=== PATIENT | female | born 1930 | race Caucasian/White ===

== ENCOUNTER → 2017-01-13 | Outpatient (CLI) | END | disposition home or self-care (01) | DX: M25.561 Pain in right knee (principal); M17.11 Unilateral primary osteoarthritis, right knee; Z96.652 Presence of left artificial knee joint | CPT/HCPCS: 73562; 73564; G0463 ==

== ENCOUNTER 2018-12-11 21:11 | Inpatient (IN) | payer MEDICARE, OTHER ==
[~2018-12-11] VITALS: Ht 152.4 cm; Wt 47.0 kg
[~2018-12-11 21:11] MED LIST: ALPR0.254 PO; BACL10TA PO; LOSA1TAB3 PO; LYR75 PO; PANT40TA4 PO; TRAM50TA2 PO
--- NOTE | 2018-12-12 01:04 | ERD ---
ER Documentation Chief Complaint Chief Complaint left chest discomfort/sob 1d HPI The patient is a 80-year-old female, presenting to the ER because of left chest discomfort with dyspnea for 1 day. She had similar symptom previously and had left pleural effusion drainage chest tube for the last 2 months, and by her surgeon 2 weeks ago. The chest tube is capped but drained by the home health nurse twice weekly, it was drained yesterday. He denies fever, cough, neck pain, abdominal pain, vomiting, dysuria, diarrhea. She does not smoke nor drink Past medical history: Hypertension, anxiety, fibromyalgia, dyslipidemia, left pl eural effusion Past surgical history: Cholecystectomy, right shoulder arthroscopy, left knee arthroscopy ROS All systems reviewed and are negative except as per history of present illness. Medications Home Meds Reported Medications Omeprazole* (Omeprazole*) 40 Mg Capsule.dr, 40 MG PO DAILY 12/12/18 Enalapril Maleate* (Enalapril Maleate*) 10 Mg Tablet, 10 MG PO DAILY for 90 Days, #90 12/12/18 Duloxetine Hcl* (Duloxetine Hcl*) 60 Mg Capsule.dr, 60 MG PO DAILY for 30 Days, #30 12/12/18 Amlodipine Besylate* (Amlodipine Besylate*) 2.5 Mg Tablet, 2.5 MG PO DAILY for 30 Days, #30 12/12/18 Discontinued Reported Medications Pregabalin* (Lyrica*) 75 Mg Capsule, 75 MG PO DAILY 08/11/12 Alprazolam* (Alprazolam*) 0.25 Mg Tablet, 0.25 MG PO NEEDED 08/11/12 Tramadol HCl (Tramadol HCl) 50 Mg Tablet, 50 MG PO DAILY 08/11/12 Pantoprazole* (Pantoprazole*) 40 Mg Tablet.dr, 40 MG PO DAILY 08/11/12 Losartan-Hydrochlorothiazide (Hyzaar) 1 Tab Tablet, 1 TAB PO DAILY 08/11/12 Baclofen* (Baclofen*) 10 Mg Tablet, 15 MG PO TID 08/11/12 Allergies Allergies: Coded Allergies: aspirin (Verified Allergy, Unknown, 08/11/12) PMhx/Soc History of Surgery: Yes (cholecystectomy, R shoulder sx, L knee sx) Anesthesia Reaction: No Hx Neurological Disorder: No Hx Respiratory Disorders: No Hx Cardiac Disorders: No Hx Psychiatric Problems: No Hx Miscellaneous Medical Probl: Yes (anxiety, osteoporosis, high cholesterol, fibromyalgia) Hx Alcohol Use: No Hx Substance Use: No Hx Tobacco Use: No Physical Exam Vitals Vital Signs Date Temp Pulse Resp B/P (MAP) Pulse Ox O2 O2 Flow FiO2 Time Delivery Rate 12/12/18 94 23 159/53 96 Room Air 01:51 (88) 12/11/18 97.6 97 18 153/80 96 21:18 (104) Physical Exam Const: No acute distress. Head: Atraumatic. Eyes: Normal Conjunctiva. ENT: Normal External Ears, Nose and Mouth. Neck: Full range of motion. No meningismus. Resp: Decreased bilateral lower breath sounds, no wheezes Cardio: Regular rate and rhythm. Abd: Soft, non distended, normal bowel sounds, non tender. Skin: No petechiae or rashes. Back: No midline or flank tenderness. Ext: No cyanosis, or edema. Neur: Awake and alert. No focal deficit Psych: Normal Mood and Affect. Result Diagram: 12/12/18 0142 12/12/18 0142 Results 24 hrs Laboratory Tests Test 12/12/18 01:42 12/12/18 01:52 White Blood Count 7.9 10^3/ul Red Blood Count 4.94 10^6/ul Hemoglobin 14.8 g/dl Hematocrit 43.4 % Mean Corpuscular Volume 87.9 fl Mean Corpuscular Hemoglobin 30.0 pg Mean Corpuscular Hemoglobin Concent 34.1 g/dl Red Cell Distribution Width 13.6 % Platelet Count 329 10^3/UL Mean Platelet Volume 10.8 fl Immature Granulocytes % 0.300 % Neutrophils % 77.2 % Lymphocytes % 15.4 % Monocytes % 6.2 % Eosinophils % 0.4 % Basophils % 0.5 % Nucleated Red Blood Cells % 0.0 /100WBC Immature Granulocytes # 0.020 10^3/ul Neutrophils # 6.1 10^3/ul Lymphocytes # 1.2 10^3/ul Monocytes # 0.5 10^3/ul Eosinophils # 0.0 10^3/ul Basophils # 0.0 10^3/ul Nucleated Red Blood Cells # 0.0 10^3/ul Prothrombin Time 12.7 Sec Prothrombin Time Ratio 1.0 INR International Normalized Ratio 0.94 Activated Partial Thromboplast Time 30.5 Sec D-Dimer 1955.67 ng/ml D-Dimer Comment Sodium Level 134 mmol/L Potassium Level 3.9 mmol/L Chloride Level 98 mmol/L Carbon Dioxide Level 27 mmol/L Anion Gap 9 Blood Urea Nitrogen 15 mg/dl Creatinine 0.51 mg/dl Est Glomerular Filtrat Rate mL/min mL/min Glucose Level 116 mg/dl Calcium Level 9.8 mg/dl Total Bilirubin 0.8 mg/dl Direct Bilirubin 0.00 mg/dl Indirect Bilirubin 0.8 mg/dl Aspartate Amino Transf (AST/SGOT) 32 IU/L Alanine Aminotransferase (ALT/SGPT) 25 IU/L Alkaline Phosphatase 160 IU/L Troponin I < 0.012 ng/ml B-Type Natriuretic Peptide 769 PG/ML Total Protein 7.8 g/dl Albumin 4.0 g/dl Globulin 3.80 g/dl Albumin/Globulin Ratio 1.05 Bedside Urine pH (LAB) 5.5 Bedside Urine Protein (LAB) 1+ Bedside Urine Glucose (UA) Negative Bedside Urine Ketones (LAB) 3+ Bedside Urine Blood Negative Bedside Urine Nitrite (LAB) Negative Bedside Urine Leukocyte Esterase (L Negative Current Medications Medications Dose Sig/Minoo Start Time Status Last (Trade) Ordered Route PRN Stop Time Admin Dose Reason Admin IV Flush 10 ml STK-MED 12/12/18 DC 12/12/18 (NS 10 ml) ONCE .ROUTE 03:36 03:47 12/12/18 03:37 Sodium 100 ml @ STK-MED 12/12/18 DC 12/12/18 Chloride ONCE .ROUTE 03:36 03:47 12/12/18 03:37 Iohexol 100 ml @ STK-MED 12/12/18 DC 12/12/18 ONCE .ROUTE 03:36 03:47 12/12/18 03:37 Procedures/[place] [id number] Radiology Main Line: [phone] DIAGNOSTIC IMAGING REPORT Patient: DARCIE LINK : 1930 Age: 88 Sex: F MR #: [id number] DOS: 12/12/18 0125 Ordering MD: MILIND MCQUEEN MD Location: E/R Room/Bed: PROCEDURE: XR Chest. CLINICAL INDICATION: Shortness of breath. TECHNIQUE: Single frontal chest x-ray. COMPARISON: 11/17/2018 FINDINGS: Patient is slightly rotated to the left. There is a left basilar chest tube. Heart is enlarged. There is unchanged pulmonary vascular congestion.. There is unchanged left greater than right pleural effusions with associated atelectasis. There is no pneumothorax. The osseous structures are unremarkable. IMPRESSION: No significant change. Cardiomegaly. Pulmonary vascular congestion. Left greater right pleural effusions with associated atelectasis. Unchanged left basilar chest tube. RPTAT: HMVK .Milind Kumar MD, MD Date Time Electronically viewed and signed by .Milind Kumar MD, MD on 12/12/2018 03:00 .K/ CC: MILIND MCQUEEN MD [id number] EKG: Read by emergency physician Rate/Rhythm: Normal Sinus Rhythm 93 beats/min QRS, ST, T-waves: No ST elevation, no T inversion, LAE, RWA Impression: Abnormal EKG [place] [id number] Radiology Main Line: [phone] DIAGNOSTIC IMAGING REPORT Patient: DARCIE LINK : 1930 Age: 88 Sex: F MR #: [id number] DOS: 12/12/18 0320 Ordering MD: MILIND MCQUEEN MD Location: E/R Room/Bed: PROCEDURE: CTA Chest. CLINICAL INDICATION: Shortness of breath TECHNIQUE: The study was performed utilizing a multidetector CT scanner. Direct spiral 1 axial sections were obtained from the thoracic inlet to the upper abdomen with the use of 100 cc of [id number]-300 nonionic intravenous contr ast material and reformatted at 3. Coronal, sagittal and 3-D angiographic reformations were obtained. The images were reviewed on a PACS workstation. CT D I 28 mCi Dose 163 mGy/cm Individualized dose optimization technique was used for the performance of this exam. This included 1. Automated exposure control. 2. Adjustment of the mA and / or kV according to the patient's size. 3. Use of iterative reconstruction technique. DICOM images are included COMPARISON: No prior studies are available for comparison. FINDINGS: There is no central or peripheral pulmonary embolism. Main pulmonary artery is not enlarged. Thoracic aorta is normal with no dissection or aneurysm. There is a left-sided chest tube. A loculated subpulmonic effusion is seen at the left lung base. There is a xzcjdxqy-vn-lrwxd right pleural effusion with compressive atelectasis at the right lung base. There are innumerable sub-centimeter noncalcified nodules throughout each of the lung segments. Dense consolidation or masses present in the left lower lobe. There is volume loss in the left chest with mediastinal shift to the left. Noted is a small to moderate-sized pericardial effusion. No pneumothorax is visualized. No hilar or mediastinal adenopathy is seen. No upper abdominal or adrenal mass is present. The osseous structures appear normal. IMPRESSION: No pulmonary embolism. No thoracic aortic aneurysm or dissection. Uaxogdfo-da-oecag right pleural effusion with compressive atelectasis right lung base. Small loculated subpulmonic left pleural effusion. Left-sided chest tube. Dense consolidation versus mass left lower lobe. Innumerable sub centimeter noncalcified bilateral lung nodules. Question metastatic disease versus inflammatory or infectious nodules. Clinical correlation suggested. Pericardial effusion. .Brayan Ortiz MD, Date Time Electronically viewed and signed by .Brayan Ortiz MD, MD on 12/12/2018 05:53 .A/ CC: MILIND MCQUEEN MD [phone] MEDICAL MAKING DECISION: The patient is a 88-year-old female, presenting with acute pericardial effusion, bilateral lower effusion The differential diagnoses considered include but are not limited to malignancy, empyema, pneumonia Departure Diagnosis: Primary Impression: Pericardial effusion Additional Impression: Bilateral pleural effusion Condition: Stable Comments I discussed the findings with the patient. I notified the patient with Dr. Burch at 5:50 AM via [employer] , who was made aware of the lab, the treatment, the patient condition. The patient is admitted to [facility] Disclaimer: Inadvertent spelling and grammatical errors are likely due to EHR/dictation software use and do not reflect on the overall quality of patient care. Also, please note that the electronic time recorded on this note does not necessarily reflect the actual time of the patient encounter. MILIND MCQUEEN MD Dec 12, 2018 01:04
[2018-12-12] MEDS ORDERED: IOHEXOL 100 ML ONE (03:36)
[2018-12-12] MEDS ORDERED: SOD CHLORIDE 0.9% 100 ML ONE (03:36)
[2018-12-12] MEDS ORDERED: ENAL10TA PO (04:06)
[2018-12-12] MEDS ORDERED: OMEP40CA6 PO (04:06)
[2018-12-12] MEDS ORDERED: DULO60CA59 PO (04:06)
[2018-12-12] MEDS ORDERED: AMLO2.5T78 PO (04:06)
[2018-12-12] MEDS ORDERED: ACETAMINOPHEN 325 MG TAB PO PRN (06:30)
[2018-12-12] MEDS ORDERED: FUROSEMIDE 40 MG INJ IV ONE (06:30)
[2018-12-12] MEDS ORDERED: BISACODYL (EC) 5 MG TAB PO PRN (06:30)
[2018-12-12] MEDS ORDERED: ONDANSETRON 4 MG INJ IV PRN ×2 (06:30→11:30)
[2018-12-12] MEDS ORDERED: DOCUSATE SODIUM 100 MG CAP PO PRN (06:30)
[2018-12-12] MEDS: NACL 0.9% 3 ML SYG IV SCH ×2 (06:46→06:47)
[2018-12-12 10:00] VITALS: Ht 152.4 cm; Wt 47.0 kg
[2018-12-12] MEDS: DULOXETINE 30 MG CAP DR PO SCH (11:00)
[2018-12-12] MEDS: ENALAPRIL 10 MG TAB PO SCH (11:00)
[2018-12-12] MEDS: AMLODIPINE 2.5 MG TAB PO SCH (11:00)
--- NOTE | 2018-12-12 11:01 | HP ---
Date/Time of Note Date/Time of Note DATE: 12/12/18 TIME: 11:01 Assessment/Plan VTE Prophylaxis Pharmacological prophylaxis: NA/contraindicated Pharm contraindication: other (Patient to get thoracentesis) Lines/Catheters [facility] Assessment/Plan Hospital Course 88-year-old female with comorbidities including hypertension, chronic left-sided pleural effusion status post Pleurx cath placement, and fibromyalgia who presented to the emergency room with epigastric discomfort who was incidentally found to have a moderate to large right pleural effusion, and pericardial effusion, who will be admitted to inpatient setting for further treatment and evaluation. 1. Bilateral pleural effusions. Etiology unclear. 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 Has a left sided Pleurx catheter in place. Obtain a right-sided thoracentesis. Drainage of the left Pleurx catheter will be deferred to pulmonology. Send fluid studies including cytology. Obtain pulmonology consult. Supplemental oxygen as needed. 2. Epigastric abdominal discomfort. Probably secondary to underlying gastric reflux. Trial of histamine 2 receptor blockers. 3. Pericardial effusion. Probably trivial pericardial effusion. No evidence of any tamponade. 2D echocardiogram ordered. Obtain cardiology consult if the 2D echocardiogram shows significant pleural effusion. 4. Hypertension. Resume antihypertensives. 5. Fibromyalgia. Resume duloxetine. Plan: The patient will be admitted to inpatient telemetry floor. The patient will be started on a regular diet. The patient will be started on DVT prophylaxis and gastrointestinal prophylaxis. The patient will remain a full code. Activities will be as tolerated. The rest of the patient's management will be based on the clinical course, inputs from consultants, and the results of diagnostic studies. Based on the patient's clinical presentation, she most probably requires at least 2 midnights' stay for further management and evaluation of her clinical presentation. The patient was seen in collaboration with Dr. Garsia. Result Diagram: 12/12/18 0142 12/12/18 0142 Results 24hrs Laboratory Tests Test 12/12/18 01:42 12/12/18 01:52 12/12/18 09:56 White Blood Count 7.9 Red Blood Count 4.94 Hemoglobin 14.8 Hematocrit 43.4 Mean Corpuscular Volume 87.9 Mean Corpuscular Hemoglobin 30.0 Mean Corpuscular Hemoglobin Concent 34.1 Red Cell Distribution Width 13.6 Platelet Count 329 Mean Platelet Volume 10.8 H Immature Granulocytes % 0.300 Neutrophils % 77.2 H Lymphocytes % 15.4 Monocytes % 6.2 Eosinophils % 0.4 Basophils % 0.5 Nucleated Red Blood Cells % 0.0 Immature Granulocytes # 0.020 Neutrophils # 6.1 Lymphocytes # 1.2 Monocytes # 0.5 Eosinophils # 0.0 Basophils # 0.0 Nucleated Red Blood Cells # 0.0 Prothrombin Time 12.7 Prothrombin Time Ratio 1.0 INR International Normalized Ratio 0.94 Activated Partial Thromboplast Time 30.5 D-Dimer 1955.67 H D-Dimer Comment Sodium Level 134 L Potassium Level 3.9 Chloride Level 98 Carbon Dioxide Level 27 Anion Gap 9 Blood Urea Nitrogen 15 Creatinine 0.51 Est Glomerular Filtrat Rate mL/min Glucose Level 116 Calcium Level 9.8 Total Bilirubin 0.8 Direct Bilirubin 0.00 Indirect Bilirubin 0.8 Aspartate Amino Transf (AST/SGOT) 32 Alanine Aminotransferase (ALT/SGPT) 25 Alkaline Phosphatase 160 H Troponin I < 0.012 < 0.012 B-Type Natriuretic Peptide 769 H Total Protein 7.8 Albumin 4.0 Globulin 3.80 H Albumin/Globulin Ratio 1.05 Bedside Urine pH (LAB) 5.5 Bedside Urine Protein (LAB) 1+ H Bedside Urine Glucose (UA) Negative Bedside Urine Ketones (LAB) 3+ H Bedside Urine Blood Negative Bedside Urine Nitrite (LAB) Negative Bedside Urine Leukocyte Esterase (L Negative Creatine Kinase 66 Creatine Kinase Index 2.5 Creatinine Kinase MB (Mass) 1.65 HPI/ROS Admit Date/Time Admit Date/Time Dec 12, 2018 at 06:08 Hx of Present Illness Reason for admission: Epigastric discomfort. Bilateral pleural effusion on chest CT. Consultants 1. Patience Mathur MD, Pulmonology. This is an 88-year-old female with past medical history of hypertension, fibromyalgia, and chronic left pleural effusion status post Pleurx catheter in July 2018. As per the patient's family, she had this left-sided pleural effusion since April 2018. She had a Pleurx catheter placed by in July 2018. The patient follows up with outpatient pulmonology (Dr. Beltran). Patient gets her Pleurx catheter drained once a week. Her last drainage was on 12/10/2018, that was minimal as per the family. The family was unable to give a clear explanation for the cause of her underlying chronic left-sided pleural effusion. The family is unaware if the patient has any underlying malignancy that is causing this pleural effusion. The patient verbalized that she came to the emergency room primarily because of epigastric discomfort and that has been going on for the past 2 weeks. She was having poor appetite and was having naus ea. She denied any vomiting. She verbalized a single episode of diarrhea. She denied any fevers or chills. She denied any chest pain or dyspnea. She denied any sore throat. In the emergency room, the patient underwent a chest x-ray that showed cardiomegaly, pulmonary vascular congestion, and left greater than right pleural effusions with associated atelectasis. As a result, the patient underwent a CT angiogram of the chest that was showing no pulmonary embolism. However, it showed moderate to large right-sided pleural effusion with compressive atelectasis of the right lung base with a small loculated subpulmonic left pleural effusion with a left-sided chest tube in place. The CT also revealed a pericardial effusion. She was treated with a single dose of IV Lasix in the emergency room. ROS Constitutional: nausea, poor po Eyes: no complaints ENT: no complaints Respiratory: shortness of breath Cardiovascular: no complaints Gastrointestinal: pain, diarrhea, nausea Genitourinary: no complaints Musculoskeletal: no complaints Skin: no complaints Neurologic: no complaints Endocrine: no complaints Lymphatic: no complaints Psychological: no complaints Immunologic: no complaints PMH/Family/Social Past Medical History 1. Hypertension. 2. Chronic left pleural effusion. 3. Fibromyalgia. Medications Current Medications IV Flush (NS 3 ml) 3 ml PER PROTOCOL IV Last administered on 12/12/18at 06:47; Admin Dose 3 ML; Start 12/12/18 at 06:30 Ondansetron HCl (Zofran Inj) 4 mg Q6H PRN IV NAUSEA/VOMITING; Start 12/12/18 at 06:30 Acetaminophen (Tylenol Tab) 650 mg Q6H PRN PO .PAIN 1-3 OR TEMP; Start 12/12/18 at 06:30 Docusate Sodium (Colace) 100 mg Q12H PRN PO .CONSTIPATION; Start 12/12/18 at 06:30 Bisacodyl (Dulcolax) 5 mg DAILY PRN PO .CONSTIPATION; Start 12/12/18 at 06:30 Coded Allergies: aspirin (Verified Allergy, Unknown, 08/11/12) Past Surgical History 1. Bilateral knee surgery. 2. Bilateral hip surgery. 3. Right shoulder surgery. 4. Cholecystectomy. 5. Left Pleurx cath placement. Social History Lives at home with family. Alcohol Use: none Smoking Status: Never smoker Drug Use: none Exam/Review of Systems Vital Signs Vitals Vital Signs Date Temp Pulse Resp B/P (MAP) Pulse Ox O2 O2 Flow FiO2 Time Delivery Rate 12/12/18 92 16 131/68 98 Nasal 2.0 09:20 (89) Cannula 12/12/18 98.4 08:27 Exam Exam General: Adequately build 88 year-old female lying in bed in no apparent distress. HEENT: Normocephalic, atraumatic. Eyes: Anicteric sclerae, conjunctivae clear. ENT: Nasal septum midline, oral mucosa is dry. Neck supple. Respiratory: Bilaterally diminished breath sounds. No use of accessory muscles of respiration. Rales at the right base. Left chest wall Pleur-X catheter in place. Cardiovascular: S1, S2 heard. No murmurs or gallops. Abdomen: Soft, nontender, and nondistended. Surgical scar from previous cholecystectomy. Bowel sounds positive in all 4 quadrants. Genitourinary: Deferred. Extremities: No cyanosis, no clubbing, no edema. Peripheral pulses palpable. Surgical scar on bilateral knees. Neurologic: Cranial nerves II through XII grossly intact. The patient is awake, alert, and oriented. Skin: Normal skin turgor. No skin rashes. Additional Comments CTA Chest IMPRESSION: No pulmonary embolism. No thoracic aortic aneurysm or dissection. Roouedbu-zl-olezh right pleural effusion with compressive atelectasis right lung base. Small loculated subpulmonic left pleural effusion. Left-sided chest tube. Dense consolidation versus mass left lower lobe. Innumerable sub centimeter noncalcified bilateral lung nodules. Question metastatic disease versus inflammatory or infectious nodules. Clinical correlation suggested. Pericardial effusion. NORRIS ROSE NP Dec 12, 2018 11:01
[2018-12-12] MEDS ORDERED: NACL 0.9% 3 ML SYG IV SCH (11:30)
[2018-12-12] MEDS: FAMOTIDINE 20 MG TAB PO SCH (12:00)
[2018-12-12] MEDS ORDERED: CALCIUM CARBONATE 500 MG CHEW TAB PO SCH (13:00)
--- NOTE | 2018-12-12 16:23 | CONS ---
DATE OF ADMISSION: 12/12/2018 DATE OF CONSULTATION: 12/12/2018 TYPE OF CONSULTATION: Pulmonary. REFERRING PHYSICIAN: Benedicto Garcia NP REASON FOR CONSULTATION: Large pleural effusion. HISTORY OF PRESENT ILLNESS: This is an 88-year-old woman with a history of recurrent left-sided pleu ral effusion, status post PleurX catheter placement who presented to ER with complaints of epigastric discomfort. In the ER a CT of the chest was done which revealed a large right pleural effusion. oracentesis has been ordered. The etiology of chronic left pleural effusion is not known to me at th is time. No old records are available. At present, the patient is on 2 liter nasal cannula, saturat ing 98% and does not appear in acute distress. REVIEW OF SYSTEMS: Very limited history due to language barrier; however, it appears that the patien t did not have any fever or chills at home. REVIEW OF SYSTEMS: CONSTITUTIONAL: No fever. ENT: No complaints. . RESPIRATORY: Shortness of breath. CARDIOVASCULAR: No chest pain or angina. GASTROINTESTINAL: Some epigastric discomfort and nausea. GENITOURINARY: No dysuria. MUSCULOSKELETAL: No complaints. NEUROLOGIC: No syncope or seizure disorder. ENDOCRINE: No complaints. PSYCHOLOGICAL: no complaints. Other systems were reviewed as well. PAST MEDICAL HISTORY: As mentioned, the patient has a chronic left pleural effusion with a PleurX ca theter placed in July of 2018. The rest of the details are not available at this time. Also his tory of hypertension and fibromyalgia. PAST SURGICAL HISTORY: Status post bilateral knee surgery, hip surgery, shoulder surgery, left Pleur X catheter placement and cholecystectomy. SOCIAL HABITS: Lives at home with family. No history of smoking or drug abuse. PHYSICAL EXAMINATION: VITAL SIGNS: Blood pressure 131/68, pulse 92, respirations 16, temperature 98.4. HEENT: Pupils are equal and react to light. NECK: Supple, no JVD noted, no cervical adenopathy noted. LUNGS: Decreased breath sounds on the right greater than left base. CARDIOVASCULAR: S1 and S2 normal. ABDOMEN: Soft, nontender, no megaly or masses noted. EXTREMITIES: No clubbing or cyanosis noted. NEUROLOGICAL: Awake. LABORATORY: Sodium 134, potassium 3.9, chloride 98, CO2 27, BUN 15, creatinine 0.51, glucose 116. B STERILE SUPPLY TECHNICIAN 769. Troponin less than 0.01. WBC 7.9, hemoglobin 14.8, hematocrit 43.4, platelets 329. CT shows no evidence of pulmonary embolism, moderate to large right pleural effusion with compressive atelectasis. Small loculated left pleural effusion with a catheter in place. There is a dense cons olidation versus mass in the left lower lobe and also multiple bilateral lung nodules and pericardial effusion. IMPRESSION: 1. Recurrent left pleural effusion, status post PleurX catheter. 2. Now the patient has a large right pleural effusion, awaiting thoracentesis. 3. Etiology of left pleural effusion is not known to me at this time. 4. History of hypertension. 5. History of fibromyalgia. 6. Pericardial effusion. 7. Epigastric pain. 8. Multiple lung nodules. RECOMMENDATIONS: 1. Await right thoracentesis. 2. No need for PleurX drainage on the left since pleural effusion is minimal. 3. Need to obtain information regarding the prior pulmonary workup. 4. Check pleural fluid studies including cytology. 5. 2D echo. Dictated By: KEN MANCINI MD, MA/EFREN Conf#: [id number] DID#: [id number] CC: NORRIS GARCIA STERILE SUPPLY TECHNICIAN; HERMINIO PERKINS MD;*EndCC*
[2018-12-12 19:49] VITALS: BP 158/72; PULSE 93; RESP 20
[2018-12-12] MEDS: ACETAMINOPHEN 325 MG TAB PO PRN (19:53)
[2018-12-13] VITALS: BP 148/76; PULSE 91; RESP 20
[2018-12-13 04:20] VITALS: BP 153/75; PULSE 101; RESP 20
[2018-12-13 07:48] VITALS: BP 151/67; PULSE 92
[2018-12-13] MEDS: DULOXETINE 30 MG CAP DR PO SCH (09:42)
[2018-12-13] MEDS: AMLODIPINE 2.5 MG TAB PO SCH (09:42)
[2018-12-13] MEDS: FAMOTIDINE 20 MG TAB PO SCH (09:42)
[2018-12-13] MEDS: ENALAPRIL 10 MG TAB PO SCH (09:42)
[2018-12-13] MEDS: ACETAMINOPHEN 325 MG TAB PO PRN ×2 (10:17→16:04)
--- NOTE | 2018-12-13 11:01 | PN ---
Date/Time of Note Date/Time of Note DATE: 12/13/18 TIME: 10:56 Assessment/Plan VTE Prophylaxis Risk score (from Ns)>0 risk: 5 SCD applied (from Nsg): Yes Pharmacological prophylaxis: LMWH Lines/Catheters IV Catheter [facility]from [facility] Saline Lock Assessment/Plan Hospital Course SUBJECTIVE: Complains of minimal epigastric discomfort. OBJECTIVE: Physical Exam General: Adequately build 88 year-old female lying in bed in no apparent distress. HEENT: Normocephalic, atraumatic. Eyes: Anicteric sclerae, conjunctivae clear. ENT: Nasal septum midline, oral mucosa is dry. Neck supple. Respiratory: Bilaterally diminished breath sounds. No use of accessory muscles of respiration. Rales at the right base. Left chest wall Pleur-X catheter in place. Cardiovascular: S1, S2 heard. No murmurs or gallops. Abdomen: Soft, nontender, and nondistended. Surgical scar from previous cholecystectomy. Bowel sounds positive in all 4 quadrants. Genitourinary: Deferred. Extremities: No cyanosis, no clubbing, no edema. Peripheral pulses palpable. Surgical scar on bilateral knees. Neurologic: Cranial nerves II through XII grossly intact. The patient is awake, alert, and oriented. Skin: Normal skin turgor. No skin rashes. Labs & Vitals per chart ASSESSMENT & PLAN 88-year-old female with comorbidities including hypertension, chronic left-sided pleural effusion status post Pleurx cath placement, and fibromyalgia who presented to the emergency room with epigastric discomfort who was incidentally found to have a moderate to large right pleural effusion, and pericardial effusion, who was admitted to inpatient setting for further treatment and eval uation. 1. Bilateral pleural effusions. Etiology unclear. Has a left sided Pleurx catheter in place. Right-sided thoracentesis ordered on 12/12/2018. Weekend interventional deferring thoracentesis to be done with dedicated interventional radiologist. Pulmonology following. Drainage of the left Pleurx catheter will be deferred to pulmonology. Supplemental oxygen as needed. 2. Epigastric abdominal discomfort. Probably secondary to underlying gastric reflux. Trial of histamine 2 receptor blockers. 3. Pericardial effusion. Pending official 2D echocardiogram results. Pending cardiology consult. 4. Hypothyroidism. Endocrinology to evaluate the patient. 5. Hypertension. Continue antihypertensives. 6. Fibromyalgia. Continue duloxetine. 7. Fluids, electrolytes, and nutrition. Regular diet. 8. DVT prophylaxis. Subcutaneous Lovenox. 9. Plan. Continue supplemental oxygen. Continue inpatient monitoring. Await cardiology evaluation. Await endocrinology evaluation. Await thoracentesis. Plan of care was explained to the patient's family, who was at the bedside. The patient was seen in collaboration with Dr. Garsia. Result Diagram: 12/13/18 0511 12/13/18 0511 Results 24hrs Laboratory Tests Test 12/12/18 16:03 12/13/18 05:11 Creatine Kinase 77 Creatine Kinase Index 2.3 Creatinine Kinase MB (Mass) 1.77 Troponin I < 0.012 White Blood Count 8.1 Red Blood Count 4.94 Hemoglobin 14.8 Hematocrit 44.1 Mean Corpuscular Volume 89.3 Mean Corpuscular Hemoglobin 30.0 Mean Corpuscular Hemoglobin Concent 33.6 Red Cell Distribution Width 13.9 Platelet Count 335 Mean Platelet Volume 11.2 H Immature Granulocytes % 0.200 Neutrophils % 73.1 Lymphocytes % 16.4 Monocytes % 9.0 Eosinophils % 0.6 Basophils % 0.7 Nucleated Red Blood Cells % 0.0 Immature Granulocytes # 0.020 Neutrophils # 5.9 Lymphocytes # 1.3 Monocytes # 0.7 Eosinophils # 0.1 Basophils # 0.1 Nucleated Red Blood Cells # 0.0 Sodium Level 136 Potassium Level 4.3 Chloride Level 96 L Carbon Dioxide Level 31 Anion Gap 9 Blood Urea Nitrogen 16 Creatinine 0.65 Est Glomerular Filtrat Rate mL/min Glucose Level 109 Hemoglobin A1c 5.5 Calcium Level 9.6 Magnesium Level 2.0 Total Bilirubin 0.6 Direct Bilirubin 0.00 Indirect Bilirubin 0.6 Aspartate Amino Transf (AST/SGOT) 33 Alanine Aminotransferase (ALT/SGPT) 21 Alkaline Phosphatase 135 H Total Protein 6.9 Albumin 3.5 Globulin 3.40 H Albumin/Globulin Ratio 1.02 Triglycerides Level 102 Cholesterol Level 198 LDL Cholesterol, Calculated 131 HDL Cholesterol 47 Cholesterol/HDL Ratio 4.2 Thyroid Stimulating Hormone (TSH) 128.000 H Exam/Review of Systems Exam Vitals Vital Signs Date Temp Pulse Resp B/P (MAP) Pulse Ox O2 O2 Flow FiO2 Time Delivery Rate 12/13/18 Room Air 08:28 12/13/18 98.1 92 151/67 92 07:48 (95) 12/13/18 20 04:20 12/12/18 2.0 09:20 Intake and Output 12/12/18 12/12/18 12/13/18 1515:00 23:00 07:00 IntakeIntake Total 450 ml 300 ml BalanceBalance 450 ml 300 ml Results Results 24hrs Laboratory Tests Test 12/12/18 16:03 12/13/18 05:11 Creatine Kinase 77 Creatine Kinase Index 2.3 Creatinine Kinase MB (Mass) 1.77 Troponin I < 0.012 White Blood Count 8.1 Red Blood Count 4.94 Hemoglobin 14.8 Hematocrit 44.1 Mean Corpuscular Volume 89.3 Mean Corpuscular Hemoglobin 30.0 Mean Corpuscular Hemoglobin Concent 33.6 Red Cell Distribution Width 13.9 Platelet Count 335 Mean Platelet Volume 11.2 H Immature Granulocytes % 0.200 Neutrophils % 73.1 Lymphocytes % 16.4 Monocytes % 9.0 Eosinophils % 0.6 Basophils % 0.7 Nucleated Red Blood Cells % 0.0 Immature Granulocytes # 0.020 Neutrophils # 5.9 Lymphocytes # 1.3 Monocytes # 0.7 Eosinophils # 0.1 Basophils # 0.1 Nucleated Red Blood Cells # 0.0 Sodium Level 136 Potassium Level 4.3 Chloride Level 96 L Carbon Dioxide Level 31 Anion Gap 9 Blood Urea Nitrogen 16 Creatinine 0.65 Est Glomerular Filtrat Rate mL/min Glucose Level 109 Hemoglobin A1c 5.5 Calcium Level 9.6 Magnesium Level 2.0 Total Bilirubin 0.6 Direct Bilirubin 0.00 Indirect Bilirubin 0.6 Aspartate Amino Transf (AST/SGOT) 33 Alanine Aminotransferase (ALT/SGPT) 21 Alkaline Phosphatase 135 H Total Protein 6.9 Albumin 3.5 Globulin 3.40 H Albumin/Globulin Ratio 1.02 Triglycerides Level 102 Cholesterol Level 198 LDL Cholesterol, Calculated 131 HDL Cholesterol 47 Cholesterol/HDL Ratio 4.2 Thyroid Stimulating Hormone (TSH) 128.000 H Medications Medication Current Medications IV Flush (NS 3 ml) 3 ml PER PROTOCOL IV Last administered on 12/12/18at 06:47; Admin Dose 3 ML; Start 12/12/18 at 06:30 Docusate Sodium (Colace) 100 mg Q12H PRN PO .CONSTIPATION; Start 12/12/18 at 06:30 Bisacodyl (Dulcolax) 5 mg DAILY PRN PO .CONSTIPATION; Start 12/12/18 at 06:30 Amlodipine Besylate (Norvasc) 2.5 mg DAILY PO Last administered on 12/13/18 09:42; Admin Dose 2.5 MG; Start 12/12/18 at 11:00 Duloxetine HCl (Cymbalta) 60 mg DAILY PO Last administered on 12/13/18 09:42; Admin Dose 60 MG; Start 12/12/18 at 11:00 Enalapril Maleate (Vasotec) 10 mg DAILY PO Last administered on 12/13/18 09:42; Admin Dose 10 MG; Start 12/12/18 at 11:00 IV Flush (NS 3 ml) 3 ml PER PROTOCOL IV ; Start 12/12/18 at 11:30 Ondansetron HCl (Zofran Inj) 4 mg Q6H PRN IV NAUSEA/VOMITING; Start 12/12/18 at 11:30 Acetaminophen (Tylenol Tab) 650 mg Q6H PRN PO .PAIN 1-3 OR TEMP Last administered on 12/13/18 10:17; Admin Dose 650 MG; Start 12/12/18 at 11:30 Simethicone (Mylicon) 80 mg Q6H PRN PO DISTENSION/GAS/BLOATING; Start 12/12/18 at 11:30 Famotidine (Pepcid) 20 mg DAILY PO Last administered on 12/13/18 09:42; Admin Dose 20 MG; Start 12/12/18 at 12:00 NORRIS ROSE NP Dec 13, 2018 11:01
[2018-12-13 11:42] VITALS: BP 136/63; PULSE 89; RESP 18
--- NOTE | 2018-12-13 14:30 | CONS ---
Assessment/Plan Assessment/Plan Hospital Course (Demo Recall) Pericardial effusion Pleural effusion Hypertension Patient with recurrent pleural effusion status post Pleurx catheter, now with effusion on the right side. CT chest with small to moderate size pericardial effusion. No evidence of clinical cardiac tampanode We will check echocardiogram Consultation Date/Type/Reason Admit Date/Time Dec 12, 2018 at 06:08 Type of Consult Cardiology Reason for Consultation Pericardial effusion Date/Time of Note DATE: 12/13/18 TIME: 14:30 Hx of Present Illness This is an 88-year-old female with history of pleural effusion status post P leurx catheter who presents with worsening shortness of breath and fatigue. Patient denies any chest pain. Patient underwent imaging which demonstrates large right pleural effusion and evidence of pericardial effusion and for this reason cardiology consultation is requested. She denies any dizziness or lightheadedness. She does get progressive shortness of breath which usually improves with drainage from her Pleurx catheter. She is currently undergoing work-up for the etiology of her recurrent effusions. This began in April 2018. She does see pulmonary Dr. Beltran and CT surgery Dr. Lazcano. No history of cardiac pathology in the past. Denies fevers or chills, palpitations or dizziness. 12 point review of systems was performed with all pertinent positives and negatives mentioned above and all else is negative Past Medical History Pleural effusion Medical History: hypertension Home Meds Reported Medications Omeprazole* (Omeprazole*) 40 Mg Capsule., 40 MG PO DAILY 12/12/18 Enalapril Maleate* (Enalapril Maleate*) 10 Mg Tablet, 10 MG PO DAILY for 90 Days, #90 12/12/18 Duloxetine Hcl* (Duloxetine Hcl*) 60 Mg Capsule., 60 MG PO DAILY for 30 Days, #30 12/12/18 Amlodipine Besylate* (Amlodipine Besylate*) 2.5 Mg Tablet, 2.5 MG PO DAILY for 30 Days, #30 12/12/18 Discontinued Reported Medications Pregabalin* (Lyrica*) 75 Mg Capsule, 75 MG PO DAILY 08/11/12 Alprazolam* (Alprazolam*) 0.25 Mg Tablet, 0.25 MG PO NEEDED 08/11/12 Tramadol HCl (Tramadol HCl) 50 Mg Tablet, 50 MG PO DAILY 08/11/12 Pantoprazole* (Pantoprazole*) 40 Mg Tablet.dr, 40 MG PO DAILY 08/11/12 Losartan-Hydrochlorothiazide (Hyzaar) 1 Tab Tablet, 1 TAB PO DAILY 08/11/12 Baclofen* (Baclofen*) 10 Mg Tablet, 15 MG PO TID 08/11/12 Medications Current Medications IV Flush (NS 3 ml) 3 ml PER PROTOCOL IV Last administered on 12/12/18at 06:47; Admin Dose 3 ML; Start 12/12/18 at 06:30 Docusate Sodium (Colace) 100 mg Q12H PRN PO .CONSTIPATION; Start 12/12/18 at 06:30 Bisacodyl (Dulcolax) 5 mg DAILY PRN PO .CONSTIPATION; Start 12/12/18 at 06:30 Amlodipine Besylate (Norvasc) 2.5 mg DAILY PO Last administered on 12/13/18 09:42; Admin Dose 2.5 MG; Start 12/12/18 at 11:00 Duloxetine HCl (Cymbalta) 60 mg DAILY PO Last administered on 12/13/18 09:42; Admin Dose 60 MG; Start 12/12/18 at 11:00 Enalapril Maleate (Vasotec) 10 mg DAILY PO Last administered on 12/13/18 09:42; Admin Dose 10 MG; Start 12/12/18 at 11:00 IV Flush (NS 3 ml) 3 ml PER PROTOCOL IV ; Start 12/12/18 at 11:30 Ondansetron HCl (Zofran Inj) 4 mg Q6H PRN IV NAUSEA/VOMITING; Start 12/12/18 at 11:30 Acetaminophen (Tylenol Tab) 650 mg Q6H PRN PO .PAIN 1-3 OR TEMP Last administered on 12/13/18at 10:17; Admin Dose 650 MG; Start 12/12/18 at 11:30 Simethicone (Mylicon) 80 mg Q6H PRN PO DISTENSION/GAS/BLOATING; Start 12/12/18 at 11:30 Famotidine (Pepcid) 20 mg DAILY PO Last administered on 12/13/18 09:42; Admin Dose 20 MG; Start 12/12/18 at 12:00 Enoxaparin Sodium (Lovenox) 30 mg DAILY SC ; Start 12/14/18 at 09:00 Levothyroxine Sodium (Synthroid) 50 mcg DAILY@06 GTB ; Start 12/14/18 at 06:00 Allergies: Coded Allergies: aspirin (Verified Allergy, Unknown, 08/11/12) Past Surgical History Past Surgical Hx: other (Including but not limited to Pleurx catheter) Family History Significant Family History: no pertinent family hx Social History Alcohol Use: none Smoking Status: Never smoker Drug Use: none Exam/Review of Systems Vital Signs Vitals Vital Signs Date Temp Pulse Resp B/P (MAP) Pulse Ox O2 O2 Flow FiO2 Time Delivery Rate 12/13/18 Room Air 12:06 12/13/18 97.9 89 18 136/63 94 11:42 (87) 12/12/18 2.0 09:20 Intake and Output 12/12/18 12/12/18 12/13/18 1515:00 23:00 07:00 IntakeIntake Total 450 ml 300 ml BalanceBalance 450 ml 300 ml Exam Constitutional: alert, oriented (No apparent distress, eating lunch, no dyspnea with speaking, no tachypnea) Head: normocephalic Respiratory: other (Decreased breath sounds at the bases, more so on the right, no wheezing) Cardiovascular: regular rate and rhythm (S1-S2 heard) Gastrointestinal: soft, non-tender, bowel sounds Extremities: edema (Trivial edema) Labs Result Diagram: 12/13/18 0511 12/13/18 0511 Results 24hrs Laboratory Tests Test 12/12/18 16:03 12/13/18 05:08 12/13/18 05:11 Creatine Kinase 77 Creatine Kinase Index 2.3 Creatinine Kinase MB (Mass) 1.77 Troponin I < 0.012 Free Thyroxine 0.43 L White Blood Count 8.1 Red Blood Count 4.94 Hemoglobin 14.8 Hematocrit 44.1 Mean Corpuscular Volume 89.3 Mean Corpuscular Hemoglobin 30.0 Mean Corpuscular Hemoglobin Concent 33.6 Red Cell Distribution Width 13.9 Platelet Count 335 Mean Platelet Volume 11.2 H Immature Granulocytes % 0.200 Neutrophils % 73.1 Lymphocytes % 16.4 Monocytes % 9.0 Eosinophils % 0.6 Basophils % 0.7 Nucleated Red Blood Cells % 0.0 Immature Granulocytes # 0.020 Neutrophils # 5.9 Lymphocytes # 1.3 Monocytes # 0.7 Eosinophils # 0.1 Basophils # 0.1 Nucleated Red Blood Cells # 0.0 Sodium Level 136 Potassium Level 4.3 Chloride Level 96 L Carbon Dioxide Level 31 Anion Gap 9 Blood Urea Nitrogen 16 Creatinine 0.65 Est Glomerular Filtrat Rate mL/min Glucose Level 109 Hemoglobin A1c 5.5 Calcium Level 9.6 Magnesium Level 2.0 Total Bilirubin 0.6 Direct Bilirubin 0.00 Indirect Bilirubin 0.6 Aspartate Amino Transf (AST/SGOT) 33 Alanine Aminotransferase (ALT/SGPT) 21 Alkaline Phosphatase 135 H Total Protein 6.9 Albumin 3.5 Globulin 3.40 H Albumin/Globulin Ratio 1.02 Triglycerides Level 102 Cholesterol Level 198 LDL Cholesterol, Calculated 131 HDL Cholesterol 47 Cholesterol/HDL Ratio 4.2 Thyroid Stimulating Hormone (TSH) 128.000 H Imaging Imaging ECG with sinus rhythm at 93 bpm, QRS 68 ms, poor R wave progression, nonspecific ST abnormalities Medications Medications Current Medications IV Flush (NS 3 ml) 3 ml PER PROTOCOL IV Last administered on 12/12/18at 06:47; Admin Dose 3 ML; Start 12/12/18 at 06:30 Docusate Sodium (Colace) 100 mg Q12H PRN PO .CONSTIPATION; Start 12/12/18 at 06:30 Bisacodyl (Dulcolax) 5 mg DAILY PRN PO .CONSTIPATION; Start 12/12/18 at 06:30 Amlodipine Besylate (Norvasc) 2.5 mg DAILY PO Last administered on 12/13/18at 09:42; Admin Dose 2.5 MG; Start 12/12/18 at 11:00 Duloxetine HCl (Cymbalta) 60 mg DAILY PO Last administered on 12/13/18at 09:42; Admin Dose 60 MG; Start 12/12/18 at 11:00 Enalapril Maleate (Vasotec) 10 mg DAILY PO Last administered on 12/13/18at 09:42; Admin Dose 10 MG; Start 12/12/18 at 11:00 IV Flush (NS 3 ml) 3 ml PER PROTOCOL IV ; Start 12/12/18 at 11:30 Ondansetron HCl (Zofran Inj) 4 mg Q6H PRN IV NAUSEA/VOMITING; Start 12/12/18 at 11:30 Acetaminophen (Tylenol Tab) 650 mg Q6H PRN PO .PAIN 1-3 OR TEMP Last administered on 12/13/18at 10:17; Admin Dose 650 MG; Start 12/12/18 at 11:30 Simethicone (Mylicon) 80 mg Q6H PRN PO DISTENSION/GAS/BLOATING; Start 12/12/18 at 11:30 Famotidine (Pepcid) 20 mg DAILY PO Last administered on 12/13/18at 09:42; Admin Dose 20 MG; Start 12/12/18 at 12:00 Enoxaparin Sodium (Lovenox) 30 mg DAILY SC ; Start 12/14/18 at 09:00 Levothyroxine Sodium (Synthroid) 50 mcg DAILY@06 GTB ; Start 12/14/18 at 06:00 Milind Petty DO Dec 13, 2018 14:30
[2018-12-13 15:46] VITALS: BP 151/69; PULSE 86; RESP 18
--- NOTE | 2018-12-13 16:24 | RADRPT ---
Echocardiogram Report Patient Name: DARCIE LINKPatient ID: [id number] : 1930 (89y )Study Date: 12/12/2018 2:31:15 PM Gender: FAccession #: [id number] Tech: LE Location: [facility] Ref.Physician: HERMINIO PERKINS Height(Cm): BSA: Weight(Kg): Quality: GoodOrder Physician: HERMINIO PERKINS Account #: Procedures: Echocardiographic Report: Transthoracic echocardiogram with complete 2D, M-Mode, and doppler examination. Indications: Pericardial Effusion. Measurements: 2D/M Mode Doppler Measurement Value Normal Range Measurement Value Normal Range LVIDd 2D 3.7 [ 3.8 - 5.2 ] cm TRISTA VTI 2.0 [ 2.0 - 4.0 ] cm2 LVIDs 2D 2.2 [ 2.2 - 3.5 ] cm AV Mean Misael 1.1 [ 70.0 - 90.0 ] cm/sec LVPWd 2D 0.8 [ 0.6 - 0.9 ] cm AV Mean PG 5.0 [ 2.0 - 4.0 ] mmHg IVSd 2D 0.9 [ 0.6 - 0.9 ] cm AV VTI 26.7 cm EDV 2D 58.9 [ 46.0 - 106.0 ] ml LVOT Mean Misael 0.8 [ 60.0 - 80.0 ] cm/sec ESV 2D 15.3 [ 14.0 - 42.0 ] ml LVOT Mean PG 3.0 [ 1.0 - 3.0 ] mmHg EF 2D 74.0 [ 54.0 - 74.0 ] percent LVOT Peak Misael 1.1 [ 70.0 - 110.0 ] cm/sec LVOT Diam 1.9 [ 2.1 - 2.5 ] cm LVOT Peak PG 5.0 [ 2.0 - 6.0 ] mmHg LVOT VTI 18.5 [ 20.0 - 30.0 ] cm MV E Peak Misael 0.8 [ 60.0 - 130.0 ] cm/sec MV A Peak Misael 1.9 [ 100.0 - 120.0 ] cm/sec MV E/A 0.4 [ 0.8 - 1.5 ] ratio MV Peak Misael 1.9 [ 60.0 - 130.0 ] cm/sec MV Peak PG 14.0 [ 1.0 - 10.0 ] mmHg MV Mean Misael 1.1 cm/sec MV Mean PG 5.0 mmHg MV Decel Time 250 [ 104 - 258 ] msec Lat E` Misael 0.0 [ 10.0 - 15.0 ] cm/sec Lateral E/E` 20.3 [ 1.0 - 2.0 ] ratio Med E` Misael 0.0 cm/sec MV E/A 0.4 [ 0.8 - 1.5 ] ratio MV VTI 29.6 cm MVA VTI 1.8 cm TR Peak Misael 3.4 [ 100.0 - 280.0 ] cm/sec TR Peak PG 47.0 mmHg PV Peak Misael 1.0 [ 40.0 - 80.0 ] cm/sec PV Peak PG 4.0 mmHg Findings: Left Ventricle: Normal left ventricular systolic function. Normal left ventricular cavity size. Ejection fraction is visually estimated at 65 %. Tissue Doppler/Mitral Doppler indices are consistent with impaired relaxation (Stage I diastolic dysfunction). Right Ventricle: Normal right ventricular size. Normal right ventricular systolic function. Left Atrium: The left atrium is normal in size. Right Atrium: The right atrium is normal in size. Mitral Valve: Normal appearance of the mitral valve. Moderate mitral leaflet calcification. Mild mitral valve regurgitation. Aortic Valve: Normal appearance of the aortic valve. No significant aortic stenosis or insufficiency. Trace aortic valve regurgitation. Tricuspid Valve: Normal appearance of the tricuspid valve. The estimated Peak RVSP is 50 mmHg. There is mild to moderate tricuspid regurgitation. Pulmonic Valve: Normal pulmonic valve appearance. Pericardium: Moderate to large pericardial effusion. Pleural effusion seen. Aorta: Normal aortic root. IVC: Normal size and normal respiratory collapse consistent with normal right atrial pressure. Conclusions: Normal left ventricular systolic function. Normal left ventricular cavity size. Ejection fraction is visually estimated at 65 %. Tissue Doppler/Mitral Doppler indices are consistent with impaired relaxation (Stage I diastolic dysfunction). Normal right ventricular size. Normal right ventricular systolic function. The left atrium is normal in size. The right atrium is normal in size. Normal appearance of the mitral valve. Moderate mitral leaflet calcification. Mild mitral valve regurgitation. Normal appearance of the aortic valve. No significant aortic stenosis or insufficiency. Trace aortic valve regurgitation. Normal appearance of the tricuspid valve. The estimated Peak RVSP is 50 mmHg. There is mild to moderate tricuspid regurgitation. Normal size and normal respiratory collapse consistent with normal right atrial pressure. Moderate to large pericardial effusion. Pleural effusion seen. Electronically Signed By: Milind Petty 2018-12-13 16:23:24 PDT
--- NOTE | 2018-12-13 16:47 | PN ---
DATE: 12/13/2018 SUBJECTIVE: Chart reviewed. The patient remains on room air saturating 94% and does not appear in a cute distress. PHYSICAL EXAMINATION: VITAL SIGNS: Blood pressure 136/63, pulse 89, respiration 18, temperature 97.9. HEENT: Pupils are equal and react to light. NECK: Supple, no JVD noted. No cervical adenopathy noted. LUNGS: Decreased breath sounds at the bases, right greater than left. CARDIOVASCULAR: S1, S2 normal. ABDOMEN: Soft, nontender. No organomegaly or masses noted. EXTREMITIES: No clubbing or cyanosis noted. NEUROLOGIC: No changes. LABORATORY DATA: WBC 8.1, hemoglobin 14.8, hematocrit 44.1, platelets 335. Sodium 136, potassium 4. 3, chloride 96, CO2 of 31, BUN 16, creatinine 0.65, and glucose 109. IMPRESSION: 1. Recurrent left pleural effusion, status post PleurX catheter placement. 2. Moderate to large right pleural effusion, awaiting thoracentesis. 3. Etiology of this effusion is not known, although prior workup has been done. 4. History of hypertension. 5. History of fibromyalgia. 6. Pericardial effusion. 7. Epigastric pain, resolving. 8. Multiple lung nodules. RECOMMENDATIONS: 1. Await thoracentesis. 2. Pleural fluid studies. 3. Obtain more information regarding prior pulmonary workup. 4. Await 2D echo. Dictated By: KEN MANCINI MD, MA/EFREN Conf#: [id number] DID#: [id number] CC: HERMINIO PERKINS MD;*EndCC*
[2018-12-13 20:35] VITALS: BP 153/70; PULSE 88; RESP 18
[2018-12-14] VITALS (7 sets, daily range): BP systolic 123–162; BP diastolic 58–72; PULSE 80–94; RESP 18
--- NOTE | 2018-12-14 01:43 | CONS ---
Assessment/Plan Assessment/Plan Problems: (1) Thyroid disorder Status: Chronic Comment: Patient with symptoms compatible with hypothyroidism and biochemically hypothyroid. Will start patient on replacement therapy at 50 mcg. Repeat thyroid function tests in approximately 3-4 weeks to evaluate for need to adjust dose. This can be done as an outpatient. Assessment/Plan (Daily) Thank you for asking me to participate in this patient's care. Consultation Date/Type/Reason Admit Date/Time Dec 12, 2018 at 06:08 Date of Consultation: Dec 13, 2018 Type of Consult Endocrine Reason for Consultation Elevated TSH Requesting Provider: NORRIS ROSE NP Date/Time of Note DATE: 12/14/18 TIME: 01:27 Hx of Present Illness 88 year old woman presents with increasing fatigue and shortness of breath. She was also complaining of epigastric discomfort. She was found to have bilateral pleural effusion and pericardial effusion, and on lab results noticed to have an elevated TSH at 125 mIU/L. She does admit to some increased constipation, and lethargy but no real weight gain, but rather weight loss. Gastrointestinal: constipation Endocrine: other (fatigue sleeping 12 hours a day.) Past Medical History Medical History: GERD, hypertension Home Meds Reported Medications Omeprazole* (Omeprazole*) 40 Mg Capsule., 40 MG PO DAILY 12/12/18 Enalapril Maleate* (Enalapril Maleate*) 10 Mg Tablet, 10 MG PO DAILY for 90 Days, #90 12/12/18 Duloxetine Hcl* (Duloxetine Hcl*) 60 Mg Capsule.dr, 60 MG PO DAILY for 30 Days, #30 12/12/18 Amlodipine Besylate* (Amlodipine Besylate*) 2.5 Mg Tablet, 2.5 MG PO DAILY for 30 Days, #30 12/12/18 Discontinued Reported Medications Pregabalin* (Lyrica*) 75 Mg Capsule, 75 MG PO DAILY 08/11/12 Alprazolam* (Alprazolam*) 0.25 Mg Tablet, 0.25 MG PO NEEDED 08/11/12 Tramadol HCl (Tramadol HCl) 50 Mg Tablet, 50 MG PO DAILY 08/11/12 Pantoprazole* (Pantoprazole*) 40 Mg Tablet., 40 MG PO DAILY 08/11/12 Losartan-Hydrochlorothiazide (Hyzaar) 1 Tab Tablet, 1 TAB PO DAILY 08/11/12 Baclofen* (Baclofen*) 10 Mg Tablet, 15 MG PO TID 08/11/12 Medications Current Medications IV Flush (NS 3 ml) 3 ml PER PROTOCOL IV Last administered on 12/12/18at 06:47; Admin Dose 3 ML; Start 12/12/18 at 06:30 Docusate Sodium (Colace) 100 mg Q12H PRN PO .CONSTIPATION; Start 12/12/18 at 06:30 Bisacodyl (Dulcolax) 5 mg DAILY PRN PO .CONSTIPATION; Start 12/12/18 at 06:30 Amlodipine Besylate (Norvasc) 2.5 mg DAILY PO Last administered on 12/13/18 09:42; Admin Dose 2.5 MG; Start 12/12/18 at 11:00 Duloxetine HCl (Cymbalta) 60 mg DAILY PO Last administered on 12/13/18 09:42; Admin Dose 60 MG; Start 12/12/18 at 11:00 Enalapril Maleate (Vasotec) 10 mg DAILY PO Last administered on 12/13/18 09:42; Admin Dose 10 MG; Start 12/12/18 at 11:00 IV Flush (NS 3 ml) 3 ml PER PROTOCOL IV ; Start 12/12/18 at 11:30 Ondansetron HCl (Zofran Inj) 4 mg Q6H PRN IV NAUSEA/VOMITING; Start 12/12/18 at 11:30 Acetaminophen (Tylenol Tab) 650 mg Q6H PRN PO .PAIN 1-3 OR TEMP Last administered on 12/13/18at 16:04; Admin Dose 650 MG; Start 12/12/18 at 11:30 Simethicone (Mylicon) 80 mg Q6H PRN PO DISTENSION/GAS/BLOATING; Start 12/12/18 at 11:30 Famotidine (Pepcid) 20 mg DAILY PO Last administered on 12/13/18 09:42; Admin Dose 20 MG; Start 12/12/18 at 12:00 Enoxaparin Sodium (Lovenox) 30 mg DAILY SC ; Start 12/14/18 at 09:00 Levothyroxine Sodium (Synthroid) 50 mcg DAILY@06 GTB ; Start 12/14/18 at 06:00 Allergies: Coded Allergies: aspirin (Verified Allergy, Unknown, 08/11/12) Past Surgical History Past Surgical Hx: cholecystectomy, other (Bilateral knee replacements and shoulder surgery. Pleural catheter placement) Family History Significant Family History: other (sister with thyroid disorder) Social History Alcohol Use: none Smoking Status: Never smoker Drug Use: none Other Social History Lives with her 2 grown daughters Exam/Review of Systems Exam Vitals Vital Signs Date Temp Pulse Resp B/P (MAP) Pulse Ox O2 O2 Flow FiO2 Time Delivery Rate 12/14/18 97.9 86 18 142/63 97 00:34 (89) 12/13/18 Room Air 16:25 12/12/18 2.0 09:20 Intake and Output 12/13/18 12/13/18 12/14/18 1515:00 23:00 07:00 IntakeIntake Total 360 ml BalanceBalance 360 ml Constitutional: alert, oriented Head: normocephalic Eyes: nl conjunctiva, EOMI, PERRL Neck: supple, thyromegaly (no) Respiratory: diminished breath sounds ( at bases) Cardiovascular: regular rate and rhythm Gastrointestinal: soft Musculoskeletal: nl extremities to inspection Extremities: normal pulses 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, nl mental status, nl speech, nl strength Additional Comments Labs reviewed Results Result Diagram: 12/13/18 0511 12/13/18 0511 Results 24hrs Laboratory Tests Test 12/13/18 05:08 12/13/18 05:11 Free Thyroxine 0.43 L White Blood Count 8.1 Red Blood Count 4.94 Hemoglobin 14.8 Hematocrit 44.1 Mean Corpuscular Volume 89.3 Mean Corpuscular Hemoglobin 30.0 Mean Corpuscular Hemoglobin Concent 33.6 Red Cell Distribution Width 13.9 Platelet Count 335 Mean Platelet Volume 11.2 H Immature Granulocytes % 0.200 Neutrophils % 73.1 Lymphocytes % 16.4 Monocytes % 9.0 Eosinophils % 0.6 Basophils % 0.7 Nucleated Red Blood Cells % 0.0 Immature Granulocytes # 0.020 Neutrophils # 5.9 Lymphocytes # 1.3 Monocytes # 0.7 Eosinophils # 0.1 Basophils # 0.1 Nucleated Red Blood Cells # 0.0 Sodium Level 136 Potassium Level 4.3 Chloride Level 96 L Carbon Dioxide Level 31 Anion Gap 9 Blood Urea Nitrogen 16 Creatinine 0.65 Est Glomerular Filtrat Rate mL/min Glucose Level 109 Hemoglobin A1c 5.5 Calcium Level 9.6 Magnesium Level 2.0 Total Bilirubin 0.6 Direct Bilirubin 0.00 Indirect Bilirubin 0.6 Aspartate Amino Transf (AST/SGOT) 33 Alanine Aminotransferase (ALT/SGPT) 21 Alkaline Phosphatase 135 H Total Protein 6.9 Albumin 3.5 Globulin 3.40 H Albumin/Globulin Ratio 1.02 Triglycerides Level 102 Cholesterol Level 198 LDL Cholesterol, Calculated 131 HDL Cholesterol 47 Cholesterol/HDL Ratio 4.2 Thyroid Stimulating Hormone (TSH) 128.000 H Medications Medication Current Medications IV Flush (NS 3 ml) 3 ml PER PROTOCOL IV Last administered on 12/12/18 06:47; Admin Dose 3 ML; Start 12/12/18 at 06:30 Docusate Sodium (Colace) 100 mg Q12H PRN PO .CONSTIPATION; Start 12/12/18 at 06:30 Bisacodyl (Dulcolax) 5 mg DAILY PRN PO .CONSTIPATION; Start 12/12/18 at 06:30 Amlodipine Besylate (Norvasc) 2.5 mg DAILY PO Last administered on 12/13/18 09:42; Admin Dose 2.5 MG; Start 12/12/18 at 11:00 Duloxetine HCl (Cymbalta) 60 mg DAILY PO Last administered on 12/13/18 09:42; Admin Dose 60 MG; Start 12/12/18 at 11:00 Enalapril Maleate (Vasotec) 10 mg DAILY PO Last administered on 12/13/18 09:42; Admin Dose 10 MG; Start 12/12/18 at 11:00 IV Flush (NS 3 ml) 3 ml PER PROTOCOL IV ; Start 12/12/18 at 11:30 Ondansetron HCl (Zofran Inj) 4 mg Q6H PRN IV NAUSEA/VOMITING; Start 12/12/18 at 11:30 Acetaminophen (Tylenol Tab) 650 mg Q6H PRN PO .PAIN 1-3 OR TEMP Last administered on 12/13/18 16:04; Admin Dose 650 MG; Start 12/12/18 at 11:30 Simethicone (Mylicon) 80 mg Q6H PRN PO DISTENSION/GAS/BLOATING; Start 12/12/18 at 11:30 Famotidine (Pepcid) 20 mg DAILY PO Last administered on 12/13/18 09:42; Admin Dose 20 MG; Start 12/12/18 at 12:00 Enoxaparin Sodium (Lovenox) 30 mg DAILY SC ; Start 12/14/18 at 09:00 Levothyroxine Sodium (Synthroid) 50 mcg DAILY@06 GTB ; Start 12/14/18 at 06:00 KIRAN GALVAN MD Dec 14, 2018 01:38
[2018-12-14] MEDS: LEVOTHYROXINE 50 MCG TAB GTB SCH (05:55)
--- NOTE | 2018-12-14 07:11 | PN ---
Date/Time of Note Date/Time of Note DATE: 12/14/18 TIME: 07:07 Assessment/Plan Lines/Catheters IV Catheter Type (from Nrs): Saline Lock Assessment/Plan Chief Complaint/Hosp Course small rightp pleural effusion moderate pericardial effusion left lower lobe infiltrate small left effusion non fuctioning left pleurx catheter options: medical therapy vs pericardial window/ removal of left pleurx Subjective 24 Hr Interval Summary Constitutional: no complaints Pain Control: well controlled Exam/Review of Systems Vital Signs Vitals Vital Signs Date Temp Pulse Resp B/P (MAP) Pulse Ox O2 O2 Flow FiO2 Time Delivery Rate 12/14/18 98.2 83 18 150/72 96 04:31 (98) 12/13/18 Room Air 16:25 12/12/18 2.0 09:20 Intake and Output 12/13/18 12/13/18 12/14/18 1414:59 22:59 06:59 IntakeIntake Total 360 ml BalanceBalance 360 ml Exam Constitutional: alert, well developed Psych: no complaints Head: normocephalic Eyes: EOMI ENMT: nl lips & teeth Neck: supple Respiratory: other (2 liters n/c left pleurx non functioinal) Cardiovascular: regular rate and rhythm Musculoskeletal: nl extremities to inspection Neurological: nl mental status Results Result Diagram: 12/14/18 0531 12/13/18 0511 SULLY WHALEY MD Dec 14, 2018 07:11
[2018-12-14] MEDS: AMLODIPINE 2.5 MG TAB PO SCH (08:47)
[2018-12-14] MEDS: ENALAPRIL 10 MG TAB PO SCH (08:47)
[2018-12-14] MEDS: FAMOTIDINE 20 MG TAB PO SCH (08:47)
[2018-12-14] MEDS: DULOXETINE 30 MG CAP DR PO SCH (08:47)
[2018-12-14] MEDS: ENOXAPARIN 30 MG/0.3 ML SYG SC SCH (09:11)
[2018-12-14] MEDS ORDERED: LIDOCAINE 1% (MPF) 5 ML VIAL ONE (10:43)
[2018-12-14] MEDS: ACETAMINOPHEN 325 MG TAB PO PRN (11:13)
--- NOTE | 2018-12-14 12:06 | CONS ---
Assessment/Plan Assessment/Plan Hospital Course (Demo Recall) Pericardial effusion, medium to large size Pleural effusion, bilateral Preserved left ventricular ejection fraction Hypertension Patient with recurrent pleural effusion status post Pleurx catheter, now with effusion on the right side. She is status post thoracentesis on 12/14/2018 Echocardiogram with medium to large size pericardial effusion with right atrial invagination, IVC is normal caliber and does collapse with respiration. No clinical evidence of cardiac tamponade I did discuss with patient's CT surgeon Dr. Lazcano yesterday regarding the findings. Bilateral pleural effusions, pericardial effusion. There was initial plans for possible thoracic surgery. He will evaluate the patient in house. Holding parameters on antihypertensives. Findings discussed with family Consultation Date/Type/Reason Admit Date/Time Dec 12, 2018 at 06:08 Initial Consult Date 12/13/18 Type of Consult Cardiology Requesting Provider: NORRIS ROSE NP Date/Time of Note DATE: 12/14/18 TIME: 12:02 24 HR Interval Summary Free Text/Dictation No shortness of breath, feeling better after thoracentesis. No dizziness Exam/Review of Systems Vital Signs Vitals Vital Signs Date Temp Pulse Resp B/P (MAP) Pulse Ox O2 O2 Flow FiO2 Time Delivery Rate 12/14/18 97.3 80 18 123/58 97 Room Air 11:16 (79) 12/12/18 2.0 09:20 Intake and Output 12/13/18 12/13/18 12/14/18 1515:00 23:00 07:00 IntakeIntake Total 360 ml BalanceBalance 360 ml Exam Constitutional: alert, oriented (No apparent distress) Head: normocephalic Respiratory: other (Coarse breath sounds bilaterally, decreased at the bases) Cardiovascular: regular rate and rhythm, systolic murmur (S1-S2 heard) Gastrointestinal: soft, non-tender, bowel sounds Extremities: other (No significant edema) Labs Result Diagram: 12/14/18 0531 12/14/18 0531 Results 24hrs Laboratory Tests Test 12/14/18 05:31 White Blood Count 7.4 Red Blood Count 4.68 Hemoglobin 14.0 Hematocrit 41.3 Mean Corpuscular Volume 88.2 Mean Corpuscular Hemoglobin 29.9 Mean Corpuscular Hemoglobin Concent 33.9 Red Cell Distribution Width 13.7 Platelet Count 315 Mean Platelet Volume 11.4 H Immature Granulocytes % 0.300 Neutrophils % 68.0 Lymphocytes % 19.5 Monocytes % 10.2 Eosinophils % 1.2 Basophils % 0.8 Nucleated Red Blood Cells % 0.0 Immature Granulocytes # 0.020 Neutrophils # 5.0 Lymphocytes # 1.5 Monocytes # 0.8 Eosinophils # 0.1 Basophils # 0.1 Nucleated Red Blood Cells # 0.0 Prothrombin Time 13.3 Prothrombin Time Ratio 1.0 INR International Normalized Ratio 1.00 Activated Partial Thromboplast Time 30.0 Sodium Level 132 L Potassium Level 3.5 Chloride Level 95 L Carbon Dioxide Level 31 Anion Gap 6 Blood Urea Nitrogen 14 Creatinine 0.65 Est Glomerular Filtrat Rate mL/min Glucose Level 99 Calcium Level 9.2 Phosphorus Level 3.9 Magnesium Level 2.0 Medications Medications Current Medications IV Flush (NS 3 ml) 3 ml PER PROTOCOL IV Last administered on 12/12/18at 06:47; Admin Dose 3 ML; Start 12/12/18 at 06:30 Docusate Sodium (Colace) 100 mg Q12H PRN PO .CONSTIPATION; Start 12/12/18 at 06:30 Bisacodyl (Dulcolax) 5 mg DAILY PRN PO .CONSTIPATION; Start 12/12/18 at 06:30 Amlodipine Besylate (Norvasc) 2.5 mg DAILY PO Last administered on 12/14/18at 08:47; Admin Dose 2.5 MG; Start 12/12/18 at 11:00 Duloxetine HCl (Cymbalta) 60 mg DAILY PO Last administered on 12/14/18at 08:47; Admin Dose 60 MG; Start 12/12/18 at 11:00 Enalapril Maleate (Vasotec) 10 mg DAILY PO Last administered on 12/14/18at 08:47; Admin Dose 10 MG; Start 12/12/18 at 11:00 IV Flush (NS 3 ml) 3 ml PER PROTOCOL IV ; Start 12/12/18 at 11:30 Ondansetron HCl (Zofran Inj) 4 mg Q6H PRN IV NAUSEA/VOMITING; Start 12/12/18 at 11:30 Acetaminophen (Tylenol Tab) 650 mg Q6H PRN PO .PAIN 1-3 OR TEMP Last administe red on 12/14/18at 11:13; Admin Dose 650 MG; Start 7/13/19 at 11:30 Simethicone (Mylicon) 80 mg Q6H PRN PO DISTENSION/GAS/BLOATING; Start 12/12/18 at 11:30 Famotidine (Pepcid) 20 mg DAILY PO Last administered on 12/14/18at 08:47; Admin Dose 20 MG; Start 12/12/18 at 12:00 Enoxaparin Sodium (Lovenox) 30 mg DAILY SC Last administered on 12/14/18at 09:11; Admin Dose 30 MG; Start 12/14/18 at 09:00 Levothyroxine Sodium (Synthroid) 50 mcg DAILY@06 GTB Last administered on 12/14/18at 05:55; Admin Dose 50 MCG; Start 12/14/18 at 06:00 Milind Petty DO Dec 14, 2018 12:06
--- NOTE | 2018-12-14 15:04 | CONS ---
Assessment/Plan Assessment/Plan Problems: (1) Adult myxedema Status: Acute Comment: She is probably had hypothyroidism for some time but is now presented. She is on levothyroxine replacement therapy. Because she is not at real risk trying to give her IV levothyroxine is probably not necessary we can go about this slowly. If we assume that the pericardial effusions is due to hypothyroidism it will take weeks for this to clear up. Consultation Date/Type/Reason Admit Date/Time Dec 12, 2018 at 06:08 Initial Consult Date 12/13/18 Type of Consult Endocrinology Reason for Consultation Markedly elevated TSH with reduced free T4 and signs and symptoms consistent with myxedema without coma Requesting Provider: NORRIS ROSE NP Date/Time of Note DATE: 12/14/18 TIME: 15:02 24 HR Interval Summary Free Text/Dictation No changes Exam/Review of Systems Exam Vitals Vital Signs Date Temp Pulse Resp B/P (MAP) Pulse Ox O2 O2 Flow FiO2 Time Delivery Rate 12/14/18 97.3 80 18 123/58 97 Room Air 11:16 (79) 12/12/18 2.0 09:20 Intake and Output 12/13/18 12/13/18 12/14/18 1515:00 23:00 07:00 IntakeIntake Total 360 ml BalanceBalance 360 ml Constitutional: alert, oriented Eyes: nl conjunctiva, EOMI, nl lids, nl sclera ENMT: nl external ears & nose, nl lips & teeth, nl nasal mucosa & septum Cardiovascular: regular rate and rhythm, nl pulses Neurological: reflexes (Late relaxation phase) Skin: other (Thickened and dry) Results Result Diagram: 12/14/18 0531 12/14/18 0531 Results 24hrs Laboratory Tests Test 12/14/18 05:31 12/14/18 10:20 White Blood Count 7.4 Red Blood Count 4.68 Hemoglobin 14.0 Hematocrit 41.3 Mean Corpuscular Volume 88.2 Mean Corpuscular Hemoglobin 29.9 Mean Corpuscular Hemoglobin Concent 33.9 Red Cell Distribution Width 13.7 Platelet Count 315 Mean Platelet Volume 11.4 H Immature Granulocytes % 0.300 Neutrophils % 68.0 Lymphocytes % 19.5 Monocytes % 10.2 Eosinophils % 1.2 Basophils % 0.8 Nucleated Red Blood Cells % 0.0 Immature Granulocytes # 0.020 Neutrophils # 5.0 Lymphocytes # 1.5 Monocytes # 0.8 Eosinophils # 0.1 Basophils # 0.1 Nucleated Red Blood Cells # 0.0 Prothrombin Time 13.3 Prothrombin Time Ratio 1.0 INR International Normalized Ratio 1.00 Activated Partial Thromboplast Time 30.0 Sodium Level 132 L Potassium Level 3.5 Chloride Level 95 L Carbon Dioxide Level 31 Anion Gap 6 Blood Urea Nitrogen 14 Creatinine 0.65 Est Glomerular Filtrat Rate mL/min Glucose Level 99 Calcium Level 9.2 Phosphorus Level 3.9 Magnesium Level 2.0 Body Fluid Type THORACENTESIS FLUID Body Fluid Volume 1000.0 Body Fluid Color YELLOW Body Fluid Appearance SLIGHTLY HAZY Body Fluid WBC 548 Body Fluid RBC (Auto) 1000 Body Fluid Polynuclear WBCs (%) 6.8 Body Fluid Mononuclear Cells % Auto 93.2 Body Fluid Glucose 126 Body Fluid Total Protein 4.2 Body Fluid Lactate Dehydrogenase 265 Medications Medication Current Medications IV Flush (NS 3 ml) 3 ml PER PROTOCOL IV Last administered on 12/12/18at 06:47; Admin Dose 3 ML; Start 12/12/18 at 06:30 Docusate Sodium (Colace) 100 mg Q12H PRN PO .CONSTIPATION; Start 12/12/18 at 06:30 Bisacodyl (Dulcolax) 5 mg DAILY PRN PO .CONSTIPATION; Start 12/12/18 at 06:30 Duloxetine HCl (Cymbalta) 60 mg DAILY PO Last administered on 12/14/18at 08:47; Admin Dose 60 MG; Start 12/12/18 at 11:00 IV Flush (NS 3 ml) 3 ml PER PROTOCOL IV ; Start 12/12/18 at 11:30 Ondansetron HCl (Zofran Inj) 4 mg Q6H PRN IV NAUSEA/VOMITING; Start 12/12/18 at 11:30 Acetaminophen (Tylenol Tab) 650 mg Q6H PRN PO .PAIN 1-3 OR TEMP Last administered on 12/14/18at 11:13; Admin Dose 650 MG; Start 12/12/18 at 11:30 Simethicone (Mylicon) 80 mg Q6H PRN PO DISTENSION/GAS/BLOATING; Start 12/12/18 at 11:30 Famotidine (Pepcid) 20 mg DAILY PO Last administered on 12/14/18at 08:47; Admin Dose 20 MG; Start 12/12/18 at 12:00 Enoxaparin Sodium (Lovenox) 30 mg DAILY SC Last administered on 12/14/18at 09:11; Admin Dose 30 MG; Start 12/14/18 at 09:00 Levothyroxine Sodium (Synthroid) 50 mcg DAILY@06 GTB Last administered on 12/14/18at 05:55; Admin Dose 50 MCG; Start 12/14/18 at 06:00 Enalapril Maleate (Vasotec) 5 mg BID PO ; Start 12/15/18 at 09:00 MYA BREWSTER MD Dec 14, 2018 15:04
--- NOTE | 2018-12-14 15:51 | PN ---
Date/Time of Note Date/Time of Note DATE: 12/14/18 TIME: 15:45 Assessment/Plan VTE Prophylaxis Risk score (from [facility])>0 risk: 4 SCD applied (from [facility]): Yes Pharmacological prophylaxis: LMWH Lines/Catheters IV Catheter Type (from [facility]): Saline Lock Urinary Cath still in place: No Assessment/Plan Hospital Course 1. Bilateral pleural effusions. Etiology unclear. left sided Pleurx catheter in place. s/p Right-sided thoracentesis 12/14/18 with 1 liter removed (ordered on 12/12/2018. Weekend interventional deferring thoracentesis to be done with dedicated interventional radiologist.) Drainage of the left Pleurx catheter per pulmonary recommendations Supplemental oxygen as needed. Plan for thoracic surgeon evaluation 2. Epigastric abdominal discomfort. continue h2 kobe 3. Pericardial effusion. 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 4. Hypothyroidism. Tripe Finisher following. continue with recommendations 5. Hypertension. Continue antihypertensives. 6. Fibromyalgia. Continue duloxetine. DISPO/PLAN: s/p thoracentesis. breathing better. pending thoracic surgeon eval. continue to monitor Discussed POC with Dr. Hwang Result Diagram: 12/14/18 0531 12/14/18 0531 Results 24hrs Laboratory Tests Test 12/14/18 05:31 12/14/18 10:20 White Blood Count 7.4 Red Blood Count 4.68 Hemoglobin 14.0 Hematocrit 41.3 Mean Corpuscular Volume 88.2 Mean Corpuscular Hemoglobin 29.9 Mean Corpuscular Hemoglobin Concent 33.9 Red Cell Distribution Width 13.7 Platelet Count 315 Mean Platelet Volume 11.4 H Immature Granulocytes % 0.300 Neutrophils % 68.0 Lymphocytes % 19.5 Monocytes % 10.2 Eosinophils % 1.2 Basophils % 0.8 Nucleated Red Blood Cells % 0.0 Immature Granulocytes # 0.020 Neutrophils # 5.0 Lymphocytes # 1.5 Monocytes # 0.8 Eosinophils # 0.1 Basophils # 0.1 Nucleated Red Blood Cells # 0.0 Prothrombin Time 13.3 Prothrombin Time Ratio 1.0 INR International Normalized Ratio 1.00 Activated Partial Thromboplast Time 30.0 Sodium Level 132 L Potassium Level 3.5 Chloride Level 95 L Carbon Dioxide Level 31 Anion Gap 6 Blood Urea Nitrogen 14 Creatinine 0.65 Est Glomerular Filtrat Rate mL/min Glucose Level 99 Calcium Level 9.2 Phosphorus Level 3.9 Magnesium Level 2.0 Body Fluid Type THORACENTESIS FLUID Body Fluid Volume 1000.0 Body Fluid Color YELLOW Body Fluid Appearance SLIGHTLY HAZY Body Fluid WBC 548 Body Fluid RBC (Auto) 1000 Body Fluid Polynuclear WBCs (%) 6.8 Body Fluid Mononuclear Cells % Auto 93.2 Body Fluid Glucose 126 Body Fluid Total Protein 4.2 Body Fluid Lactate Dehydrogenase 265 Subjective 24 Hr Interval Summary Free Text/Dictation family at bedside. reports better breathing s/p thoracentesis Exam/Review of Systems Exam Vitals Vital Signs Date Temp Pulse Resp B/P (MAP) Pulse Ox O2 O2 Flow FiO2 Time Delivery Rate 12/14/18 97.3 80 18 123/58 97 Room Air 11:16 (79) 12/12/18 2.0 09:20 Intake and Output 12/13/18 12/13/18 12/14/18 1515:00 23:00 07:00 IntakeIntake Total 360 ml BalanceBalance 360 ml Constitutional: alert, oriented Psych: nl mood/affect Head: normocephalic Neck: supple, non-tender Respiratory: diminished breath sounds Cardiovascular: other (regular rate ) Gastrointestinal: soft, non-tender Neurological: nl mental status, nl speech Skin: other (left flank pleurx ) Results Results 24hrs Laboratory Tests Test 12/14/18 05:31 12/14/18 10:20 White Blood Count 7.4 Red Blood Count 4.68 Hemoglobin 14.0 Hematocrit 41.3 Mean Corpuscular Volume 88.2 Mean Corpuscular Hemoglobin 29.9 Mean Corpuscular Hemoglobin Concent 33.9 Red Cell Distribution Width 13.7 Platelet Count 315 Mean Platelet Volume 11.4 H Immature Granulocytes % 0.300 Neutrophils % 68.0 Lymphocytes % 19.5 Monocytes % 10.2 Eosinophils % 1.2 Basophils % 0.8 Nucleated Red Blood Cells % 0.0 Immature Granulocytes # 0.020 Neutrophils # 5.0 Lymphocytes # 1.5 Monocytes # 0.8 Eosinophils # 0.1 Basophils # 0.1 Nucleated Red Blood Cells # 0.0 Prothrombin Time 13.3 Prothrombin Time Ratio 1.0 INR International Normalized Ratio 1.00 Activated Partial Thromboplast Time 30.0 Sodium Level 132 L Potassium Level 3.5 Chloride Level 95 L Carbon Dioxide Level 31 Anion Gap 6 Blood Urea Nitrogen 14 Creatinine 0.65 Est Glomerular Filtrat Rate mL/min Glucose Level 99 Calcium Level 9.2 Phosphorus Level 3.9 Magnesium Level 2.0 Body Fluid Type THORACENTESIS FLUID Body Fluid Volume 1000.0 Body Fluid Color YELLOW Body Fluid Appearance SLIGHTLY HAZY Body Fluid WBC 548 Body Fluid RBC (Auto) 1000 Body Fluid Polynuclear WBCs (%) 6.8 Body Fluid Mononuclear Cells % Auto 93.2 Body Fluid Glucose 126 Body Fluid Total Protein 4.2 Body Fluid Lactate Dehydrogenase 265 Medications Medication Current Medications IV Flush (NS 3 ml) 3 ml PER PROTOCOL IV Last administered on 12/12/18 06:47; Admin Dose 3 ML; Start 12/12/18 at 06:30 Docusate Sodium (Colace) 100 mg Q12H PRN PO .CONSTIPATION; Start 12/12/18 at 06:30 Bisacodyl (Dulcolax) 5 mg DAILY PRN PO .CONSTIPATION; Start 12/12/18 at 06:30 Duloxetine HCl (Cymbalta) 60 mg DAILY PO Last administered on 12/14/18 08:47; Admin Dose 60 MG; Start 12/12/18 at 11:00 IV Flush (NS 3 ml) 3 ml PER PROTOCOL IV ; Start 12/12/18 at 11:30 Ondansetron HCl (Zofran Inj) 4 mg Q6H PRN IV NAUSEA/VOMITING; Start 12/12/18 at 11:30 Acetaminophen (Tylenol Tab) 650 mg Q6H PRN PO .PAIN 1-3 OR TEMP Last administered on 12/14/18at 11:13; Admin Dose 650 MG; Start 12/12/18 at 11:30 Simethicone (Mylicon) 80 mg Q6H PRN PO DISTENSION/GAS/BLOATING; Start 12/12/18 at 11:30 Famotidine (Pepcid) 20 mg DAILY PO Last administered on 12/14/18at 08:47; Admin Dose 20 MG; Start 12/12/18 at 12:00 Enoxaparin Sodium (Lovenox) 30 mg DAILY SC Last administered on 12/14/18at 09:11; Admin Dose 30 MG; Start 12/14/18 at 09:00 Levothyroxine Sodium (Synthroid) 50 mcg DAILY@06 GTB Last administered on 12/14/18at 05:55; Admin Dose 50 MCG; Start 12/14/18 at 06:00 Enalapril Maleate (Vasotec) 5 mg BID PO ; Start 12/15/18 at 09:00 ROSALES VIVAS NP Dec 14, 2018 15:51
[2018-12-15] VITALS (7 sets, daily range): BP systolic 118–164; BP diastolic 56–81; PULSE 58–93; RESP 18–20
[2018-12-15] MEDS: LEVOTHYROXINE 50 MCG TAB GTB SCH (06:25)
[2018-12-15] MEDS: DULOXETINE 30 MG CAP DR PO SCH (08:20)
[2018-12-15] MEDS: FAMOTIDINE 20 MG TAB PO SCH (08:20)
--- NOTE | 2018-12-15 08:43 | CONS ---
Assessment/Plan Assessment/Plan Problems: (1) Adult myxedema Status: Acute Comment: Continue with thyroid hormone replacement. Please note that there is no indication of coronary artery disease or primary rhythm disturbances. As such we can be slightly more robust with her thyroid hormone replacement we will have her on 75 mcg a day. She will need her blood tested to follow-up on this in roughly 3 to 4 weeks Consultation Date/Type/Reason Admit Date/Time Dec 12, 2018 at 06:08 Initial Consult Date 12/13/18 Type of Consult Endocrinology Reason for Consultation Hypothyroidism with myxedema Requesting Provider: NORRIS ROSE NP Date/Time of Note DATE: 12/15/18 TIME: 08:42 24 HR Interval Summary Free Text/Dictation She is up and ambulating in the room without issues. Constitutional: no complaints Detailed Summary Endocrine: dry skin, temp intolerance (Feels cold) Exam/Review of Systems Exam Vitals Vital Signs Date Temp Pulse Resp B/P (MAP) Pulse Ox O2 O2 Flow FiO2 Time Delivery Rate 12/15/18 97.8 93 20 164/74 98 Room Air 07:42 (104) 12/12/18 2.0 09:20 Intake and Output 12/14/18 12/14/18 12/15/18 1414:59 22:59 06:59 IntakeIntake Total 800 ml BalanceBalance 800 ml Constitutional: alert Neck: supple, non-tender Cardiovascular: regular rate and rhythm, nl pulses Skin: other (Thickened cool and dry) Results Result Diagram: 12/14/18 0531 12/14/18 0531 Results 24hrs Laboratory Tests Test 12/14/18 10:20 Body Fluid Type THORACENTESIS FLUID Body Fluid Volume 1000.0 Body Fluid Color YELLOW Body Fluid Appearance SLIGHTLY HAZY Body Fluid WBC 548 Body Fluid RBC (Auto) 1000 Body Fluid Polynuclear WBCs (%) 6.8 Body Fluid Mononuclear Cells % Auto 93.2 Body Fluid Glucose 126 Body Fluid Total Protein 4.2 Body Fluid Lactate Dehydrogenase 265 Medications Medication Current Medications IV Flush (NS 3 ml) 3 ml PER PROTOCOL IV Last administered on 12/12/18at 06:47; Admin Dose 3 ML; Start 12/12/18 at 06:30 Docusate Sodium (Colace) 100 mg Q12H PRN PO .CONSTIPATION; Start 12/12/18 at 06:30 Bisacodyl (Dulcolax) 5 mg DAILY PRN PO .CONSTIPATION; Start 12/12/18 at 06:30 Duloxetine HCl (Cymbalta) 60 mg DAILY PO Last administered on 12/14/18 08:47; Admin Dose 60 MG; Start 12/12/18 at 11:00 IV Flush (NS 3 ml) 3 ml PER PROTOCOL IV ; Start 12/12/18 at 11:30 Ondansetron HCl (Zofran Inj) 4 mg Q6H PRN IV NAUSEA/VOMITING Last administered on 12/15/18 08:27; Admin Dose 4 MG; Start 12/12/18 at 11:30 Acetaminophen (Tylenol Tab) 650 mg Q6H PRN PO .PAIN 1-3 OR TEMP Last administered on 12/14/18 11:13; Admin Dose 650 MG; Start 12/12/18 at 11:30 Simethicone (Mylicon) 80 mg Q6H PRN PO DISTENSION/GAS/BLOATING Last administered on 12/15/18 08:27; Admin Dose 80 MG; Start 12/12/18 at 11:30 Famotidine (Pepcid) 20 mg DAILY PO Last administered on 12/14/18 08:47; Admin Dose 20 MG; Start 12/12/18 at 12:00 Enoxaparin Sodium (Lovenox) 30 mg DAILY SC Last administered on 12/14/18 09:11; Admin Dose 30 MG; Start 12/14/18 at 09:00 Levothyroxine Sodium (Synthroid) 50 mcg DAILY@06 GTB Last administered on 12/15/18 06:25; Admin Dose 50 MCG; Start 12/14/18 at 06:00 Enalapril Maleate (Vasotec) 5 mg BID PO ; Start 12/15/18 at 09:00 MYA BREWSTER MD Dec 15, 2018 08:43
[2018-12-15] MEDS: ENOXAPARIN 30 MG/0.3 ML SYG SC SCH (08:56)
[2018-12-15] MEDS ORDERED: LEVOTHYROXINE 25 MCG TAB GTB ONE (09:00)
[2018-12-15] MEDS ORDERED: ENALAPRIL 5 MG TAB PO SCH (09:00)
--- NOTE | 2018-12-15 12:04 | PN ---
Date/Time of Note Date/Time of Note DATE: 12/15/18 TIME: 11:58 Assessment/Plan VTE Prophylaxis Risk score (from [facility] [place] risk: 4 SCD applied (from Ns): Yes Pharmacological prophylaxis: LMWH Lines/Catheters IV Catheter Type (from [facility]): Saline Lock Urinary Cath still in place: No Assessment/Plan Hospital Course 1. Bilateral pleural effusions. Etiology unclear. left sided Pleurx catheter in place - d.c per surgeon s/p Right-sided thoracentesis 12/14/18 with 1 liter removed (ordered on 12/12/2018. Weekend interventional deferring thoracentesis to be done with dedicated interventional radiologist.) o2 prn thoracic surgeon following 2. Epigastric abdominal discomfort. continue h2 kobe 3. Pericardial effusion. workers compensation claims supervisor following echo with: Moderate to large pericardial effusion. 4. Hypothyroidism. Optical Designer following. continue with recommendations 5. Hypertension. Continue antihypertensives. 6. Fibromyalgia. Continue duloxetine. DISPO/PLAN: breathing better. f/u chest imaging. f/u cardiology recommendations Discussed POC with Dr. Hwang Result Diagram: 12/14/1853012/14/18 05 Subjective 24 Hr Interval Summary Free Text/Dictation patient no with no respiratory distress at this time. comfortable at present Exam/Review of Systems Exam Vitals Vital Signs Date Temp Pulse Resp B/P (MAP) Pulse Ox O2 O2 Flow FiO2 Time Delivery Rate 12/15/18 97.8 93 20 164/74 98 Room Air 07:42 (104) 12/12/18 2.0 09:20 Intake and Output 12/14/18 12/14/18 12/15/18 1515:00 23:00 07:00 IntakeIntake Total 800 ml BalanceBalance 800 ml Exam Constitutional: alert, oriented Psych: nl mood/affect Head: normocephalic Neck: supple, non-tender Respiratory: diminished breath sounds Cardiovascular: other (regular rate ) Gastrointestinal: soft, non-tender Neurological: nl mental status, nl speech Skin: other (left flank pleurx ) Medications Medication Current Medications IV Flush (NS 3 ml) 3 ml PER PROTOCOL IV Last administered on 12/12/18at 06:47; Admin Dose 3 ML; Start 12/12/18 at 06:30 Docusate Sodium (Colace) 100 mg Q12H PRN PO .CONSTIPATION; Start 12/12/18 at 06:30 Bisacodyl (Dulcolax) 5 mg DAILY PRN PO .CONSTIPATION; Start 12/12/18 at 06:30 Duloxetine HCl (Cymbalta) 60 mg DAILY PO Last administered on 12/15/18 08:20; Admin Dose 60 MG; Start 12/12/18 at 11:00 IV Flush (NS 3 ml) 3 ml PER PROTOCOL IV ; Start 12/12/18 at 11:30 Ondansetron HCl (Zofran Inj) 4 mg Q6H PRN IV NAUSEA/VOMITING Last administered on 12/15/18 08:27; Admin Dose 4 MG; Start 12/12/18 at 11:30 Acetaminophen (Tylenol Tab) 650 mg Q6H PRN PO .PAIN 1-3 OR TEMP Last administered on 12/14/18 11:13; Admin Dose 650 MG; Start 12/12/18 at 11:30 Simethicone (Mylicon) 80 mg Q6H PRN PO DISTENSION/GAS/BLOATING Last administered on 12/15/18 08:27; Admin Dose 80 MG; Start 12/12/18 at 11:30 Famotidine (Pepcid) 20 mg DAILY PO Last administered on 12/15/18 08:20; Admin Dose 20 MG; Start 12/12/18 at 12:00 Enoxaparin Sodium (Lovenox) 30 mg DAILY SC Last administered on 12/15/18 08:56; Admin Dose 30 MG; Start 12/14/18 at 09:00 Enalapril Maleate (Vasotec) 5 mg BID PO Last administered on 12/15/18 08:20; Admin Dose 5 MG; Start 12/15/18 at 09:00 Levothyroxine Sodium (Synthroid) 75 mcg DAILY@06 PO ; Start 12/16/18 at 06:00 ROSALES VIVAS NP Dec 15, 2018 12:04
--- NOTE | 2018-12-15 16:31 | CONS ---
Assessment/Plan Assessment/Plan Hospital Course (Demo Recall) Pericardial effusion, medium to large size Pleural effusion, bilateral Preserved left ventricular ejection fraction Hypertension Patient with recurrent pleural effusion status post Pleurx catheter, now with effusion on the right side. She is status post thoracentesis on 12/14/2018 Echocardiogram with medium to large size pericardial effusion with right atrial invagination, IVC is normal caliber and does collapse with respiration. No clinical evidence of cardiac tamponade I did discuss with patient's CT surgeon Dr. Lazcano today. Given her advanced age, he is hesitant to proceeding with surgical intervention Discussed with the family, that there is evidence of the pericardial fluid eat ing pressure on the heart, but clinically she shows no signs of decompensation. I discussed the option of pericardiocentesis. At the current time, patient's family are requesting medical management. I will start on gentle diuretics, colchicine, repeat echo in 1 to 2 days Holding parameters on antihypertensives. Consultation Date/Type/Reason Admit Date/Time Dec 12, 2018 at 06:08 Initial Consult Date 12/13/18 Type of Consult Cardiology Requesting Provider: NORRIS ROSE NP Date/Time of Note DATE: 12/15/18 TIME: 16:23 24 HR Interval Summary Free Text/Dictation Shortness of breath is better. No dizziness, palpitations or chest pain Exam/Review of Systems Vital Signs Vitals Vital Signs Date Temp Pulse Resp B/P (MAP) Pulse Ox O2 O2 Flow FiO2 Time Delivery Rate 12/15/18 98.2 58 18 138/63 99 12:10 (88) 12/15/18 Room Air 07:42 12/12/18 2.0 09:20 Intake and Output 12/14/18 12/14/18 12/15/18 1515:00 23:00 07:00 IntakeIntake Total 800 ml BalanceBalance 800 ml Exam Constitutional: alert, oriented (No apparent distress) Head: normocephalic Respiratory: other (Coarse breath sounds, decreased at the bases) Cardiovascular: regular rate and rhythm (S1-S2 heard), other (S1-S2 heard) Gastrointestinal: soft, non-tender, bowel sounds Extremities: other (No significant edema) Labs Result Diagram: 12/14/18 0531 12/14/18 0531 Medications Medications Current Medications IV Flush (NS 3 ml) 3 ml PER PROTOCOL IV Last administered on 12/12/18 06:47; Admin Dose 3 ML; Start 12/12/18 at 06:30 Docusate Sodium (Colace) 100 mg Q12H PRN PO .CONSTIPATION; Start 12/12/18 at 06:30 Bisacodyl (Dulcolax) 5 mg DAILY PRN PO .CONSTIPATION; Start 12/12/18 at 06:30 Duloxetine HCl (Cymbalta) 60 mg DAILY PO Last administered on 12/15/18 08:20; Admin Dose 60 MG; Start 12/12/18 at 11:00 IV Flush (NS 3 ml) 3 ml PER PROTOCOL IV ; Start 12/12/18 at 11:30 Ondansetron HCl (Zofran Inj) 4 mg Q6H PRN IV NAUSEA/VOMITING Last administered on 12/15/18 08:27; Admin Dose 4 MG; Start 12/12/18 at 11:30 Acetaminophen (Tylenol Tab) 650 mg Q6H PRN PO .PAIN 1-3 OR TEMP Last administered on 12/14/18at 11:13; Admin Dose 650 MG; Start 12/12/18 at 11:30 Simethicone (Mylicon) 80 mg Q6H PRN PO DISTENSION/GAS/BLOATING Last administere d on 12/15/18 08:27; Admin Dose 80 MG; Start 12/12/18 at 11:30 Famotidine (Pepcid) 20 mg DAILY PO Last administered on 12/15/18 08:20; Admin Dose 20 MG; Start 12/12/18 at 12:00 Enoxaparin Sodium (Lovenox) 30 mg DAILY SC Last administered on 12/15/18 08:56; Admin Dose 30 MG; Start 12/14/18 at 09:00 Enalapril Maleate (Vasotec) 5 mg BID PO Last administered on 12/15/18 08:20; Admin Dose 5 MG; Start 12/15/18 at 09:00 Levothyroxine Sodium (Synthroid) 75 mcg DAILY@06 PO ; Start 12/16/18 at 06:00 Furosemide (Lasix) 20 mg DAILY IV ; Start 12/15/18 at 15:30 Colchicine (Colchicine) 0.6 mg BID PO ; Start 12/15/18 at 21:00; Stop 12/16/18 at 09:01 Colchicine (Colchicine) 0.6 mg DAILY PO ; Start 12/17/18 at 09:00 Milind Petty DO Dec 15, 2018 16:31
[2018-12-15] MEDS: FUROSEMIDE 20 MG INJ IV SCH (16:32)
[2018-12-15] MEDS: COLCHICINE 0.6 MG CAP PO SCH (21:06)
[2018-12-16] VITALS (8 sets, daily range): BP systolic 120–175; BP diastolic 56–74; PULSE 72–86; RESP 18–20
[2018-12-16] MEDS: LEVOTHYROXINE 75 MCG TAB PO SCH (05:17)
[2018-12-16] MEDS: COLCHICINE 0.6 MG CAP PO SCH (08:17)
[2018-12-16] MEDS: FAMOTIDINE 20 MG TAB PO SCH (08:18)
[2018-12-16] MEDS: DULOXETINE 30 MG CAP DR PO SCH (08:18)
[2018-12-16] MEDS: FUROSEMIDE 20 MG INJ IV SCH (08:18)
[2018-12-16] MEDS: ENOXAPARIN 30 MG/0.3 ML SYG SC SCH (08:38)
[2018-12-16] MEDS: ACETAMINOPHEN 325 MG TAB PO PRN (16:19)
[2018-12-16] MEDS ORDERED: POTASSIUM CHLORIDE (SR) 20 MEQ TAB PO STA (17:16)
[2018-12-16] MEDS ORDERED: FUROSEMIDE 20 MG INJ IV ONE (17:30)
--- NOTE | 2018-12-16 18:33 | PN ---
Date/Time of Note Date/Time of Note DATE: 12/16/18 TIME: 18:30 Assessment/Plan VTE Prophylaxis Risk score (from [facility] [place] risk: 4 SCD applied (from Ns): Yes Pharmacological prophylaxis: LMWH Lines/Catheters IV Catheter Type (from [facility] Saline Lock Urinary Cath still in place: No Assessment/Plan Hospital Course 1. Bilateral pleural effusions. Etiology unclear. s/p Right-sided thoracentesis 12/14/18 with 1 liter removed (ordered on 12/12/2018. Weekend interventional deferring thoracentesis to be done with dedicated interventional radiologist.) o2 prn thoracic surgeon following 2. Epigastric abdominal discomfort. continue h2 kobe 3. Pericardial effusion. dobby looms pegger following echo with: Moderate to large pericardial effusion. 4. Hypothyroidism. Liquor Bridge Operator Helper following. continue with recommendations 5. Hypertension. Continue antihypertensives. 6. Fibromyalgia. Continue duloxetine. DISPO/PLAN: plan for repeat echo. continue on diuretics. PT eval Discussed POC with Dr. Hwang Result Diagram: 12/16/18 0501 12/16/18 0501 Results 24hrs Laboratory Tests Test 12/16/18 05:01 White Blood Count 8.6 Red Blood Count 4.73 Hemoglobin 14.3 Hematocrit 42.6 Mean Corpuscular Volume 90.1 Mean Corpuscular Hemoglobin 30.2 Mean Corpuscular Hemoglobin Concent 33.6 Red Cell Distribution Width 13.9 Platelet Count 306 Mean Platelet Volume 11.4 H Immature Granulocytes % 0.200 Neutrophils % 73.4 Lymphocytes % 15.7 Monocytes % 8.3 Eosinophils % 1.6 Basophils % 0.8 Nucleated Red Blood Cells % 0.0 Immature Granulocytes # 0.020 Neutrophils # 6.3 Lymphocytes # 1.4 Monocytes # 0.7 Eosinophils # 0.1 Basophils # 0.1 Nucleated Red Blood Cells # 0.0 Sodium Level 132 L Potassium Level 3.7 Chloride Level 91 L Carbon Dioxide Level 33 H Anion Gap 8 Blood Urea Nitrogen 20 Creatinine 0.78 Est Glomerular Filtrat Rate mL/min Glucose Level 106 Calcium Level 9.2 Free Thyroxine 0.59 L Subjective 24 Hr Interval Summary Free Text/Dictation family at bedside during visit. no respiratory distress seen. Exam/Review of Systems Exam Vitals Vital Signs Date Temp Pulse Resp B/P (MAP) Pulse Ox O2 O2 Flow FiO2 Time Delivery Rate 12/16/18 97.7 86 20 133/63 97 Room Air 15:04 (86) 12/12/18 2.0 09:20 Intake and Output 12/15/18 12/15/18 12/16/18 1515:00 23:00 07:00 IntakeIntake Total 240 ml BalanceBalance 240 ml Exam Constitutional: alert, oriented Psych: nl mood/affect Head: normocephalic Neck: supple, non-tender Respiratory: diminished breath sounds Cardiovascular: other (regular rate ) Gastrointestinal: soft, non-tender Neurological: nl mental status, nl speech Skin: other (left flank pleurx ) Results Results 24hrs Laboratory Tests Test 12/16/18 05:01 White Blood Count 8.6 Red Blood Count 4.73 Hemoglobin 14.3 Hematocrit 42.6 Mean Corpuscular Volume 90.1 Mean Corpuscular Hemoglobin 30.2 Mean Corpuscular Hemoglobin Concent 33.6 Red Cell Distribution Width 13.9 Platelet Count 306 Mean Platelet Volume 11.4 H Immature Granulocytes % 0.200 Neutrophils % 73.4 Lymphocytes % 15.7 Monocytes % 8.3 Eosinophils % 1.6 Basophils % 0.8 Nucleated Red Blood Cells % 0.0 Immature Granulocytes # 0.020 Neutrophils # 6.3 Lymphocytes # 1.4 Monocytes # 0.7 Eosinophils # 0.1 Basophils # 0.1 Nucleated Red Blood Cells # 0.0 Sodium Level 132 L Potassium Level 3.7 Chloride Level 91 L Carbon Dioxide Level 33 H Anion Gap 8 Blood Urea Nitrogen 20 Creatinine 0.78 Est Glomerular Filtrat Rate mL/min Glucose Level 106 Calcium Level 9.2 Free Thyroxine 0.59 L Medications Medication Current Medications IV Flush (NS 3 ml) 3 ml PER PROTOCOL IV Last administered on 12/12/18at 06:47; Admin Dose 3 ML; Start 12/12/18 at 06:30 Docusate Sodium (Colace) 100 mg Q12H PRN PO .CONSTIPATION Last administered on 12/15/18at 18:19; Admin Dose 100 MG; Start 12/12/18 at 06:30 Bisacodyl (Dulcolax) 5 mg DAILY PRN PO .CONSTIPATION Last administered on 12/15/18at 18:19; Admin Dose 5 MG; Start 12/12/18 at 06:30 Duloxetine HCl (Cymbalta) 60 mg DAILY PO Last administered on 12/16/18at 08:18; Admin Dose 60 MG; Start 12/12/18 at 11:00 IV Flush (NS 3 ml) 3 ml PER PROTOCOL IV ; Start 12/12/18 at 11:30 Ondansetron HCl (Zofran Inj) 4 mg Q6H PRN IV NAUSEA/VOMITING Last administered on 12/15/18at 08:27; Admin Dose 4 MG; Start 12/12/18 at 11:30 Acetaminophen (Tylenol Tab) 650 mg Q6H PRN PO .PAIN 1-3 OR TEMP Last administered on 12/16/18 16:19; Admin Dose 650 MG; Start 12/12/18 at 11:30 Simethicone (Mylicon) 80 mg Q6H PRN PO DISTENSION/GAS/BLOATING Last administered on 12/16/18 16:19; Admin Dose 80 MG; Start 12/12/18 at 11:30 Famotidine (Pepcid) 20 mg DAILY PO Last administered on 12/16/18 08:18; Admin Dose 20 MG; Start 12/12/18 at 12:00 Enoxaparin Sodium (Lovenox) 30 mg DAILY SC Last administered on 12/16/18at 08:38; Admin Dose 30 MG; Start 12/14/18 at 09:00 Enalapril Maleate (Vasotec) 5 mg BID PO Last administered on 12/15/18 08:20; Admin Dose 5 MG; Start 12/15/18 at 09:00; Status Hold Levothyroxine Sodium (Synthroid) 75 mcg DAILY@06 PO Last administered on 12/16/18 05:17; Admin Dose 75 MCG; Start 12/16/18 at 06:00 Furosemide (Lasix) 20 mg DAILY IV Last administered on 12/16/18 08:18; Admin Dose 20 MG; Start 12/15/18 at 15:30 Colchicine (Colchicine) 0.6 mg DAILY PO ; Start 12/17/18 at 09:00 ROSALES VIVAS NP Dec 16, 2018 18:33
[2018-12-17 04:08] VITALS: BP 132/62; PULSE 80; RESP 18
[2018-12-17] MEDS: LEVOTHYROXINE 75 MCG TAB PO SCH (05:41)
[2018-12-17 07:21] VITALS: BP 138/97; PULSE 95; RESP 18
[2018-12-17] MEDS: COLCHICINE 0.6 MG CAP PO SCH (08:13)
[2018-12-17] MEDS: FAMOTIDINE 20 MG TAB PO SCH (08:13)
[2018-12-17] MEDS: DULOXETINE 30 MG CAP DR PO SCH (08:13)
[2018-12-17] MEDS: FUROSEMIDE 20 MG INJ IV SCH (08:13)
[2018-12-17] MEDS: ENOXAPARIN 30 MG/0.3 ML SYG SC SCH (08:53)
[2018-12-17 11:15] VITALS: BP 128/64; PULSE 85; RESP 18
--- NOTE | 2018-12-17 12:54 | PN ---
Date/Time of Note Date/Time of Note DATE: 12/17/18 TIME: 12:46 Assessment/Plan VTE Prophylaxis Risk score (from Ns)>0 risk: 4 SCD applied (from Ns): Yes Pharmacological prophylaxis: LMWH Lines/Catheters IV Catheter Type (from [facility]): Saline Lock Urinary Cath still in place: No Assessment/Plan Hospital Course 1. Bilateral pleural effusions. Etiology unclear. left sided Pleurx catheter in place - d.c per surgeon s/p Right-sided thoracentesis 12/14/18 with 1 liter removed (ordered on 12/12/2018. Weekend interventional deferring thoracentesis to be done with dedicated interventional radiologist.) o2 prn thoracic surgeon following 2. Epigastric abdominal discomfort. f/u lipase start ppi check abd imaging 3. Pericardial effusion. rainbow trout farm manager following echo 12.12.18 with: Moderate to large pericardial effusion. f/u repeat echo results 4. Hypothyroidism. Ethylene Plant Operator following. continue with recommendations 5. Hypertension. Continue antihypertensives. 6. Fibromyalgia. Continue duloxetine. DISPO/PLAN: f/u repeat echo results. continue diuretics. check abd imaging. for abd pain. start ppi Discussed POC with Dr. Hwang Result Diagram: 12/17/18 0547 12/17/18 0547 Results 24hrs Laboratory Tests Test 12/17/18 05:47 White Blood Count 7.8 Red Blood Count 4.97 Hemoglobin 15.0 Hematocrit 43.5 Mean Corpuscular Volume 87.5 Mean Corpuscular Hemoglobin 30.2 Mean Corpuscular Hemoglobin Concent 34.5 Red Cell Distribution Width 13.5 Platelet Count 307 Mean Platelet Volume 11.2 H Immature Granulocytes % 0.300 Neutrophils % 71.1 Lymphocytes % 18.6 Monocytes % 7.8 Eosinophils % 1.4 Basophils % 0.8 Nucleated Red Blood Cells % 0.0 Immature Granulocytes # 0.020 Neutrophils # 5.5 Lymphocytes # 1.5 Monocytes # 0.6 Eosinophils # 0.1 Basophils # 0.1 Nucleated Red Blood Cells # 0.0 Sodium Level 131 L Potassium Level 4.2 Chloride Level 90 L Carbon Dioxide Level 34 H Anion Gap 7 Blood Urea Nitrogen 15 Creatinine 0.71 Est Glomerular Filtrat Rate mL/min Glucose Level 103 Calcium Level 9.4 Magnesium Level 1.8 Total Bilirubin 0.6 Direct Bilirubin 0.00 Indirect Bilirubin 0.6 Aspartate Amino Transf (AST/SGOT) 53 H Alanine Aminotransferase (ALT/SGPT) 37 Alkaline Phosphatase 160 H Total Protein 7.1 Albumin 3.6 Globulin 3.50 H Albumin/Globulin Ratio 1.02 Free Thyroxine Index 1.50 Thyroxine (T4) 4.8 L Triiodothyronine (T3) Uptake 31.3 Subjective 24 Hr Interval Summary Free Text/Dictation patient reports having some abdominal discomfort, epigastric area and RUQ Exam/Review of Systems Exam Vitals Vital Signs Date Temp Pulse Resp B/P (MAP) Pulse Ox O2 O2 Flow FiO2 Time Delivery Rate 12/17/18 97.3 85 18 128/64 97 Room Air 11:15 (85) Intake and Output 12/16/18 12/16/18 12/17/18 1515:00 23:00 07:00 IntakeIntake Total 720 ml 240 ml BalanceBalance 720 ml 240 ml Exam Constitutional: alert, oriented Psych: nl mood/affect Head: normocephalic Neck: supple, non-tender Respiratory: diminished breath sounds Cardiovascular: other (regular rate ) Gastrointestinal: soft, non-tender Neurological: nl mental status, nl speech Results Results 24hrs Laboratory Tests Test 12/17/18 05:47 White Blood Count 7.8 Red Blood Count 4.97 Hemoglobin 15.0 Hematocrit 43.5 Mean Corpuscular Volume 87.5 Mean Corpuscular Hemoglobin 30.2 Mean Corpuscular Hemoglobin Concent 34.5 Red Cell Distribution Width 13.5 Platelet Count 307 Mean Platelet Volume 11.2 H Immature Granulocytes % 0.300 Neutrophils % 71.1 Lymphocytes % 18.6 Monocytes % 7.8 Eosinophils % 1.4 Basophils % 0.8 Nucleated Red Blood Cells % 0.0 Immature Granulocytes # 0.020 Neutrophils # 5.5 Lymphocytes # 1.5 Monocytes # 0.6 Eosinophils # 0.1 Basophils # 0.1 Nucleated Red Blood Cells # 0.0 Sodium Level 131 L Potassium Level 4.2 Chloride Level 90 L Carbon Dioxide Level 34 H Anion Gap 7 Blood Urea Nitrogen 15 Creatinine 0.71 Est Glomerular Filtrat Rate mL/min Glucose Level 103 Calcium Level 9.4 Magnesium Level 1.8 Total Bilirubin 0.6 Direct Bilirubin 0.00 Indirect Bilirubin 0.6 Aspartate Amino Transf (AST/SGOT) 53 H Alanine Aminotransferase (ALT/SGPT) 37 Alkaline Phosphatase 160 H Total Protein 7.1 Albumin 3.6 Globulin 3.50 H Albumin/Globulin Ratio 1.02 Free Thyroxine Index 1.50 Thyroxine (T4) 4.8 L Triiodothyronine (T3) Uptake 31.3 Medications Medication Current Medications IV Flush (NS 3 ml) 3 ml PER PROTOCOL IV Last administered on 12/12/18 06:47; Admin Dose 3 ML; Start 12/12/18 at 06:30 Docusate Sodium (Colace) 100 mg Q12H PRN PO .CONSTIPATION Last administered on 12/15/18 18:19; Admin Dose 100 MG; Start 12/12/18 at 06:30 Bisacodyl (Dulcolax) 5 mg DAILY PRN PO .CONSTIPATION Last administered on 12/15/18 18:19; Admin Dose 5 MG; Start 12/12/18 at 06:30 Duloxetine HCl (Cymbalta) 60 mg DAILY PO Last administered on 12/17/18 08:13; Admin Dose 60 MG; Start 12/12/18 at 11:00 IV Flush (NS 3 ml) 3 ml PER PROTOCOL IV ; Start 12/12/18 at 11:30 Ondansetron HCl (Zofran Inj) 4 mg Q6H PRN IV NAUSEA/VOMITING Last administered on 12/15/18 08:27; Admin Dose 4 MG; Start 12/12/18 at 11:30 Acetaminophen (Tylenol Tab) 650 mg Q6H PRN PO .PAIN 1-3 OR TEMP Last administered on 12/16/18 16:19; Admin Dose 650 MG; Start 12/12/18 at 11:30 Simethicone (Mylicon) 80 mg Q6H PRN PO DISTENSION/GAS/BLOATING Last administered on 12/16/18 16:19; Admin Dose 80 MG; Start 12/12/18 at 11:30 Enoxaparin Sodium (Lovenox) 30 mg DAILY SC Last administered on 12/17/18 08:53; Admin Dose 30 MG; Start 12/14/18 at 09:00 Enalapril Maleate (Vasotec) 5 mg BID PO Last administered on 12/15/18 08:20; Admin Dose 5 MG; Start 12/15/18 at 09:00; Status Hold Levothyroxine Sodium (Synthroid) 75 mcg DAILY@06 PO Last administered on 7/18/19at 05:41; Admin Dose 75 MCG; Start 12/16/18 at 06:00 Furosemide (Lasix) 20 mg DAILY IV Last administered on 12/17/18at 08:13; Admin Dose 20 MG; Start 12/15/18 at 15:30 Colchicine (Colchicine) 0.6 mg DAILY PO Last administered on 12/17/18at 08:13; Admin Dose 0.6 MG; Start 12/17/18 at 09:00 Pantoprazole (Protonix Tab) 40 mg BID@18 PO ; Start 12/17/18 at 18:00; Status UNV ROSALES VIVAS REVENUE ACCOUNTANT Dec 17, 2018 12:54
[2018-12-17 15:20] VITALS: BP 165/70; PULSE 82; RESP 18
[2018-12-17] MEDS ORDERED: FUROSEMIDE 20 MG INJ IV ONE (15:30)
--- NOTE | 2018-12-17 15:50 | CONS ---
Assessment/Plan Assessment/Plan Problems: (1) Thyroid disorder Status: Chronic Comment: Hypothyroidism on replacement. Will take a few more weeks for TSH to normalize. Concerned 75 mcg may be too much for this patient given total body weight. Will monitor symptoms for palpitation. Consultation Date/Type/Reason Admit Date/Time Dec 12, 2018 at 06:08 Initial Consult Date 12/13/18 Type of Consult Endocrine Reason for Consultation Thyroid disorder Requesting Provider: NORRIS ROSE NP Date/Time of Note DATE: 12/17/18 TIME: 15:44 24 HR Interval Summary Free Text/Dictation Patient continues with mild fatigue and occasional breathlessness but no respiratory distress. Complain of abdominal epigastric discomfort. Exam/Review of Systems Exam Vitals Vital Signs Date Temp Pulse Resp B/P (MAP) Pulse Ox O2 O2 Flow FiO2 Time Delivery Rate 12/17/18 97.3 85 18 128/64 97 Room Air 11:15 (85) Intake and Output 12/16/18 12/16/18 12/17/18 1515:00 23:00 07:00 IntakeIntake Total 720 ml 240 ml BalanceBalance 720 ml 240 ml Constitutional: alert, oriented Psych: nl mood/affect Neck: supple, thyromegaly (none) Respiratory: diminished breath sounds Cardiovascular: regular rate and rhythm Gastrointestinal: soft Musculoskeletal: nl extremities to inspection Results Result Diagram: 12/17/18 0547 12/17/18 0547 Results 24hrs Laboratory Tests Test 12/17/18 05:47 White Blood Count 7.8 Red Blood Count 4.97 Hemoglobin 15.0 Hematocrit 43.5 Mean Corpuscular Volume 87.5 Mean Corpuscular Hemoglobin 30.2 Mean Corpuscular Hemoglobin Concent 34.5 Red Cell Distribution Width 13.5 Platelet Count 307 Mean Platelet Volume 11.2 H Immature Granulocytes % 0.300 Neutrophils % 71.1 Lymphocytes % 18.6 Monocytes % 7.8 Eosinophils % 1.4 Basophils % 0.8 Nucleated Red Blood Cells % 0.0 Immature Granulocytes # 0.020 Neutrophils # 5.5 Lymphocytes # 1.5 Monocytes # 0.6 Eosinophils # 0.1 Basophils # 0.1 Nucleated Red Blood Cells # 0.0 Sodium Level 131 L Potassium Level 4.2 Chloride Level 90 L Carbon Dioxide Level 34 H Anion Gap 7 Blood Urea Nitrogen 15 Creatinine 0.71 Est Glomerular Filtrat Rate mL/min Glucose Level 103 Calcium Level 9.4 Magnesium Level 1.8 Total Bilirubin 0.6 Direct Bilirubin 0.00 Indirect Bilirubin 0.6 Aspartate Amino Transf (AST/SGOT) 53 H Alanine Aminotransferase (ALT/SGPT) 37 Alkaline Phosphatase 160 H Total Protein 7.1 Albumin 3.6 Globulin 3.50 H Albumin/Globulin Ratio 1.02 Lipase 99 Free Thyroxine Index 1.50 Thyroxine (T4) 4.8 L Triiodothyronine (T3) Uptake 31.3 Medications Medication Current Medications IV Flush (NS 3 ml) 3 ml PER PROTOCOL IV Last administered on 12/12/18 06:47; Admin Dose 3 ML; Start 12/12/18 at 06:30 Docusate Sodium (Colace) 100 mg Q12H PRN PO .CONSTIPATION Last administered on 12/15/18 18:19; Admin Dose 100 MG; Start 12/12/18 at 06:30 Bisacodyl (Dulcolax) 5 mg DAILY PRN PO .CONSTIPATION Last administered on 12/15/18 18:19; Admin Dose 5 MG; Start 12/12/18 at 06:30 Duloxetine HCl (Cymbalta) 60 mg DAILY PO Last administered on 12/17/18 08:13; Admin Dose 60 MG; Start 12/12/18 at 11:00 IV Flush (NS 3 ml) 3 ml PER PROTOCOL IV ; Start 12/12/18 at 11:30 Ondansetron HCl (Zofran Inj) 4 mg Q6H PRN IV NAUSEA/VOMITING Last administered on 12/15/18 08:27; Admin Dose 4 MG; Start 12/12/18 at 11:30 Acetaminophen (Tylenol Tab) 650 mg Q6H PRN PO .PAIN 1-3 OR TEMP Last administered on 12/16/18 16:19; Admin Dose 650 MG; Start 12/12/18 at 11:30 Simethicone (Mylicon) 80 mg Q6H PRN PO DISTENSION/GAS/BLOATING Last administer ed on 12/16/18 16:19; Admin Dose 80 MG; Start 12/12/18 at 11:30 Enoxaparin Sodium (Lovenox) 30 mg DAILY SC Last administered on 12/17/18 08:53; Admin Dose 30 MG; Start 12/14/18 at 09:00 Enalapril Maleate (Vasotec) 5 mg BID PO Last administered on 12/15/18 08:20; Admin Dose 5 MG; Start 12/15/18 at 09:00; Status Hold Levothyroxine Sodium (Synthroid) 75 mcg DAILY@06 PO Last administered on 11/30 01/18at 05:41; Admin Dose 75 MCG; Start 12/16/18 at 06:00 Furosemide (Lasix) 20 mg DAILY IV Last administered on 12/17/18at 08:13; Admin Dose 20 MG; Start 12/15/18 at 15:30 Colchicine (Colchicine) 0.6 mg DAILY PO Last administered on 12/17/18at 08:13; Admin Dose 0.6 MG; Start 12/17/18 at 09:00 Pantoprazole (Protonix Tab) 40 mg BID@18 PO ; Start 12/17/18 at 18:00 KIRAN GALVAN MD Dec 17, 2018 15:50
--- NOTE | 2018-12-17 16:25 | CONS ---
Assessment/Plan Assessment/Plan Hospital Course (Demo Recall) Pericardial effusion, medium to large size Pleural effusion, bilateral Preserved left ventricular ejection fraction Hypertension Patient with recurrent pleural effusion status post Pleurx catheter, now with effusion on the right side. She is status post thoracentesis on 12/14/2018 Repeat echocardiogram today, effusion has decreased slightly. IVC remains small and collapses. Patient without any clinical signs of cardiac tamponade. Discussed with family, they do not want any procedure the current time and requesting continuing medical management. Would continue diuretics and colchicine Repeat echocardiogram as an outpatient Consultation Date/Type/Reason Admit Date/Time Dec 12, 2018 at 06:08 Initial Consult Date 12/13/18 Type of Consult Cardiology Requesting Provider: NORRIS ROSE NP Date/Time of Note DATE: 12/17/18 TIME: 16:23 24 HR Interval Summary Free Text/Dictation No shortness of breath, palpitations, dizziness Exam/Review of Systems Vital Signs Vitals Vital Signs Date Temp Pulse Resp B/P (MAP) Pulse Ox O2 O2 Flow FiO2 Time Delivery Rate 12/17/18 97.7 82 18 165/70 98 Room Air 15:20 (101) Intake and Output 12/16/18 12/16/18 12/17/18 1515:00 23:00 07:00 IntakeIntake Total 720 ml 240 ml BalanceBalance 720 ml 240 ml Exam Constitutional: alert, oriented (No apparent distress) Head: normocephalic Respiratory: other (Coarse breath sounds bilaterally, no wheezing) Cardiovascular: regular rate and rhythm (S1-S2 heard) Gastrointestinal: soft, non-tender, bowel sounds Extremities: other (No significant edema) Labs Result Diagram: 12/17/18 0547 12/17/18 0547 Results 24hrs Laboratory Tests Test 12/17/18 05:47 White Blood Count 7.8 Red Blood Count 4.97 Hemoglobin 15.0 Hematocrit 43.5 Mean Corpuscular Volume 87.5 Mean Corpuscular Hemoglobin 30.2 Mean Corpuscular Hemoglobin Concent 34.5 Red Cell Distribution Width 13.5 Platelet Count 307 Mean Platelet Volume 11.2 H Immature Granulocytes % 0.300 Neutrophils % 71.1 Lymphocytes % 18.6 Monocytes % 7.8 Eosinophils % 1.4 Basophils % 0.8 Nucleated Red Blood Cells % 0.0 Immature Granulocytes # 0.020 Neutrophils # 5.5 Lymphocytes # 1.5 Monocytes # 0.6 Eosinophils # 0.1 Basophils # 0.1 Nucleated Red Blood Cells # 0.0 Sodium Level 131 L Potassium Level 4.2 Chloride Level 90 L Carbon Dioxide Level 34 H Anion Gap 7 Blood Urea Nitrogen 15 Creatinine 0.71 Est Glomerular Filtrat Rate mL/min Glucose Level 103 Calcium Level 9.4 Magnesium Level 1.8 Total Bilirubin 0.6 Direct Bilirubin 0.00 Indirect Bilirubin 0.6 Aspartate Amino Transf (AST/SGOT) 53 H Alanine Aminotransferase (ALT/SGPT) 37 Alkaline Phosphatase 160 H Total Protein 7.1 Albumin 3.6 Globulin 3.50 H Albumin/Globulin Ratio 1.02 Lipase 99 Free Thyroxine Index 1.50 Thyroxine (T4) 4.8 L Triiodothyronine (T3) Uptake 31.3 Medications Medications Current Medications IV Flush (NS 3 ml) 3 ml PER PROTOCOL IV Last administered on 12/12/18 06:47; Admin Dose 3 ML; Start 12/12/18 at 06:30 Docusate Sodium (Colace) 100 mg Q12H PRN PO .CONSTIPATION Last administered on 12/15/18 18:19; Admin Dose 100 MG; Start 12/12/18 at 06:30 Bisacodyl (Dulcolax) 5 mg DAILY PRN PO .CONSTIPATION Last administered on 12/15/18 18:19; Admin Dose 5 MG; Start 12/12/18 at 06:30 Duloxetine HCl (Cymbalta) 60 mg DAILY PO Last administered on 12/17/18 08:13; Admin Dose 60 MG; Start 12/12/18 at 11:00 IV Flush (NS 3 ml) 3 ml PER PROTOCOL IV ; Start 12/12/18 at 11:30 Ondansetron HCl (Zofran Inj) 4 mg Q6H PRN IV NAUSEA/VOMITING Last administered on 12/15/18 08:27; Admin Dose 4 MG; Start 12/12/18 at 11:30 Acetaminophen (Tylenol Tab) 650 mg Q6H PRN PO .PAIN 1-3 OR TEMP Last administered on 12/16/18 16:19; Admin Dose 650 MG; Start 12/12/18 at 11:30 Simethicone (Mylicon) 80 mg Q6H PRN PO DISTENSION/GAS/BLOATING Last administered on 12/16/18 16:19; Admin Dose 80 MG; Start 12/12/18 at 11:30 Enoxaparin Sodium (Lovenox) 30 mg DAILY SC Last administered on 12/17/18 08 :53; Admin Dose 30 MG; Start 12/14/18 at 09:00 Enalapril Maleate (Vasotec) 5 mg BID PO Last administered on 12/15/18 08:20; Admin Dose 5 MG; Start 12/15/18 at 09:00; Status Hold Levothyroxine Sodium (Synthroid) 75 mcg DAILY@06 PO Last administered on 12/17/18 05:41; Admin Dose 75 MCG; Start 12/16/18 at 06:00 Furosemide (Lasix) 20 mg DAILY IV Last administered on 12/17/18 08:13; Admin Dose 20 MG; Start 12/15/18 at 15:30 Colchicine (Colchicine) 0.6 mg DAILY PO Last administered on 12/17/18 08:13; Admin Dose 0.6 MG; Start 12/17/18 at 09:00 Pantoprazole (Protonix Tab) 40 mg BID@,18 PO ; Start 12/17/18 at 18:00 Milind Petty DO Dec 17, 2018 16:25
[2018-12-17] MEDS ORDERED: MAGNESIUM SULFATE 2 GM/50 ML 50 ML IVPB ONE (16:30)
--- NOTE | 2018-12-17 17:11 | RADRPT ---
Echocardiogram Report Patient Name: DARCIE LINKPatient ID: [id number] : 1930 (89y )Study Date: 12/17/2018 7:08:14 AM Gender: FAccession #: [id number] Tech: Preet Greene [facility] Location: [id number] Ref.Physician: JOVAN PETTY Height(Cm): BSA: Weight(Kg): Quality: AdequateOrder Physician: JOVAN PETTY Account #: Procedures: Echocardiographic Report: Transthoracic echocardiogram examination. Indications: Pericardial Effusion. Findings: Left Ventricle: The left ventricular ejection fraction is visually estimated at 65 %. Pericardium: Moderate pericardial effusion. IVC: Normal inferior vena cava appearance and respiratory collapse. Conclusions: The left ventricular ejection fraction is visually estimated at 65 %. Normal inferior vena cava appearance and respiratory collapse. Moderate pericardial effusion. Minimally decreased in size compared to previous. Electronically Signed By: Jovan Petty 2018-12-17 17:10:33 PDT
[2018-12-17] MEDS: PANTOPRAZOLE (EC) 40 MG TAB PO SCH (17:44)
[2018-12-17 19:34] VITALS: BP 152/70; PULSE 84; RESP 20
[2018-12-17 23:40] VITALS: BP 147/77; PULSE 81; RESP 18
[2018-12-18 03:26] VITALS: BP 150/80; PULSE 80; RESP 19
[2018-12-18] MEDS: LEVOTHYROXINE 75 MCG TAB PO SCH (06:15)
[2018-12-18] MEDS: PANTOPRAZOLE (EC) 40 MG TAB PO SCH (06:15)
[2018-12-18 07:18] VITALS: BP 183/81; PULSE 90; RESP 18
[2018-12-18] MEDS ORDERED: LISINOPRIL 5 MG TAB PO SCH (09:00)
[2018-12-18] MEDS: DULOXETINE 30 MG CAP DR PO SCH (09:22)
[2018-12-18] MEDS: COLCHICINE 0.6 MG CAP PO SCH (09:23)
[2018-12-18] MEDS: FUROSEMIDE 20 MG INJ IV SCH (09:23)
[2018-12-18] MEDS: ENOXAPARIN 30 MG/0.3 ML SYG SC SCH (09:27)
[2018-12-18] MEDS: ACETAMINOPHEN 325 MG TAB PO PRN (09:30)
[2018-12-18 11:16] VITALS: BP 143/67; PULSE 81; RESP 18
[2018-12-18] MEDS ORDERED: Colchicine PO (12:27)
[2018-12-18] MEDS ORDERED: PANT40TA4 PO (12:27)
[2018-12-18] MEDS ORDERED: LEVO75TA5 PO (12:27)
[2018-12-18] MEDS ORDERED: LISI-313 PO (12:27)
[2018-12-18] MEDS ORDERED: FURO20TA3 PO (12:27)
--- NOTE | 2018-12-18 12:33 | PDOCDIS ---
Discharge Instructions DIAGNOSIS Discharge Diagnosis 1. Bilateral pleural effusions 2. Epigastric abdominal discomfort. 3. Pericardial effusion. 4. Hypothyroidism. 5. Hypertension. 6. Fibromyalgia. CONDITION [id number] Patient Condition: [id number] Stable FOLLOW UP/APPOINTMENTS Follow-up Plan Call and make an appointment with Dr. Cristian Petty (Purchasing Manager) in 2 weeks Office Address [facility] [address] [place] [id number] Office Call and make an appointment with Dr. Vick Rojas (Tax Compliance Representative) in 1 to 2 weeks Office Address [address] [place] [id number] Office ROSAELS VIVAS NP Dec 18, 2018 12:33
--- NOTE | 2018-12-18 13:47 | CONS ---
Assessment/Plan Assessment/Plan Hospital Course (Demo Recall) Pericardial effusion, medium to large size Pleural effusion, bilateral Preserved left ventricular ejection fraction Hypertension Patient with recurrent pleural effusion status post Pleurx catheter, now with effusion on the right side. She is status post thoracentesis on 12/14/2018 Repeat echocardiogram 12/17/2018, effusion has decreased slightly. IVC remains small and collapses. Patient without any clinical signs of cardiac tamponade. Discussed with family, they do not want to proceed with pericardiocentesis at the current time and requesting continuing medical management. Would continue diuretics and colchicine Repeat echocardiogram as an outpatient DC planning Consultation Date/Type/Reason Admit Date/Time Dec 12, 2018 at 06:08 Initial Consult Date 12/13/18 Type of Consult Cardiology Requesting Provider: NORRIS ROSE NP Date/Time of Note DATE: 12/18/18 TIME: 13:45 24 HR Interval Summary Free Text/Dictation No shortness of breath, dizziness, chest pain Exam/Review of Systems Vital Signs Vitals Vital Signs Date Temp Pulse Resp B/P (MAP) Pulse Ox O2 O2 Flow FiO2 Time Delivery Rate 12/18/18 97.6 81 18 143/67 95 Room Air 11:16 (92) Intake and Output 12/17/18 12/17/18 12/18/18 1515:00 23:00 07:00 IntakeIntake Total 460 ml 400 ml BalanceBalance 460 ml 400 ml Exam Constitutional: alert, oriented (No apparent distress) Head: normocephalic Respiratory: other (Coarse breath sounds bilaterally, no wheezing) Cardiovascular: regular rate and rhythm (S1-S2 heard) Gastrointestinal: soft, non-tender, bowel sounds Extremities: other (No significant edema) Labs Result Diagram: 12/18/18 0450 12/18/18 0450 Results 24hrs Laboratory Tests Test 12/18/18 04:50 White Blood Count 7.1 Red Blood Count 5.16 Hemoglobin 15.6 Hematocrit 45.7 Mean Corpuscular Volume 88.6 Mean Corpuscular Hemoglobin 30.2 Mean Corpuscular Hemoglobin Concent 34.1 Red Cell Distribution Width 13.6 Platelet Count 322 Mean Platelet Volume 11.2 H Immature Granulocytes % 0.300 Neutrophils % 71.0 Lymphocytes % 16.8 Monocytes % 9.4 Eosinophils % 1.4 Basophils % 1.1 Nucleated Red Blood Cells % 0.0 Immature Granulocytes # 0.020 Neutrophils # 5.0 Lymphocytes # 1.2 Monocytes # 0.7 Eosinophils # 0.1 Basophils # 0.1 Nucleated Red Blood Cells # 0.0 Sodium Level 130 L Potassium Level 4.0 Chloride Level 87 L Carbon Dioxide Level 35 H Anion Gap 8 Blood Urea Nitrogen 17 Creatinine 0.77 Est Glomerular Filtrat Rate mL/min Glucose Level 114 Calcium Level 9.4 Magnesium Level 2.4 Medications Medications Current Medications IV Flush (NS 3 ml) 3 ml PER PROTOCOL IV Last administered on 12/12/18 06:47; Admin Dose 3 ML; Start 12/12/18 at 06:30 Docusate Sodium (Colace) 100 mg Q12H PRN PO .CONSTIPATION Last administered on 12/15/18 18:19; Admin Dose 100 MG; Start 12/12/18 at 06:30 Bisacodyl (Dulcolax) 5 mg DAILY PRN PO .CONSTIPATION Last administered on 12/15/18 18:19; Admin Dose 5 MG; Start 12/12/18 at 06:30 Duloxetine HCl (Cymbalta) 60 mg DAILY PO Last administered on 12/18/18 09:22; Admin Dose 60 MG; Start 12/12/18 at 11:00 IV Flush (NS 3 ml) 3 ml PER PROTOCOL IV ; Start 12/12/18 at 11:30 Ondansetron HCl (Zofran Inj) 4 mg Q6H PRN IV NAUSEA/VOMITING Last administered on 12/15/18 08:27; Admin Dose 4 MG; Start 12/12/18 at 11:30 Acetaminophen (Tylenol Tab) 650 mg Q6H PRN PO .PAIN 1-3 OR TEMP Last administered on 12/18/18 09:30; Admin Dose 650 MG; Start 12/12/18 at 11:30 Simethicone (Mylicon) 80 mg Q6H PRN PO DISTENSION/GAS/BLOATING Last admi nistered on 12/16/18 16:19; Admin Dose 80 MG; Start 12/12/18 at 11:30 Enoxaparin Sodium (Lovenox) 30 mg DAILY SC Last administered on 12/18/18 09:27; Admin Dose 30 MG; Start 12/14/18 at 09:00 Enalapril Maleate (Vasotec) 5 mg BID PO Last administered on 12/15/18 08:20; Admin Dose 5 MG; Start 12/15/18 at 09:00; Status Hold Levothyroxine Sodium (Synthroid) 75 mcg DAILY@06 PO Last administered on 12/18/18 06:15; Admin Dose 75 MCG; Start 12/16/18 at 06:00 Furosemide (Lasix) 20 mg DAILY IV Last administered on 12/18/18 09:23; Admin Dose 20 MG; Start 12/15/18 at 15:30 Colchicine (Colchicine) 0.6 mg DAILY PO Last administered on 12/18/18 09:23; Admin Dose 0.6 MG; Start 12/17/18 at 09:00 Pantoprazole (Protonix Tab) 40 mg BID@06,18 PO Last administered on 12/18/18 06:15; Admin Dose 40 MG; Start 12/17/18 at 18:00 Lisinopril (Zestril) 5 mg DAILY PO Last administered on 12/18/18 09:23; Admin Dose 5 MG; Start 12/18/18 at 09:00 Milind Petty DO Dec 18, 2018 13:47
[2018-12-18 15:15] VITALS: BP 139/59; PULSE 85; RESP 18
== END 2018-12-18 17:36 | disposition home health service (06) | DRG 187 ==
LOC: E/R 21:11 → 6WM 12-12 06:08 → EDBEDREQ 12-12 06:13
PROVIDERS: ADMIT Family Medicine; ATTEND Family Medicine
PROC: 0W993ZX Drainage of Right Pleural Cavity, Percutaneous Approach, Diagnostic (ICD-10-PCS; principal; 2018-12-14)
DX: J90 Pleural effusion, not elsewhere classified (principal); I31.3 Pericardial effusion (noninflammatory); E03.9 Hypothyroidism, unspecified; K21.9 Gastro-esophageal reflux disease without esophagitis; M79.7 Fibromyalgia; I10 Essential (primary) hypertension
CPT/HCPCS: 32555; 36415; 71045; 71275; 76604; 76705; 80048; 80053; 80061; 81003; 82550; 82553; 82945; 83036; 83615; 83690; 83735; 83880; 84100; 84157; 84436; 84439; 84443; 84479; 84484; 85025; 85378; 85610; 85730; 87070; 87102; 87116; 88104; 88305; 89051; 93005; 93306; 93308; 97161; 97530; J1650; J1940; J2405; J3475; Q9967

== ENCOUNTER 2019-04-02 12:57 | Inpatient (IN) | payer MEDICARE, OTHER ==
[~2019-04-02] VITALS: Ht 162.6 cm; Wt 47.4 kg
[~2019-04-02 12:57] MED LIST changes: +ACET325T45 PO; -ALPR0.254 PO; +ALPR0.5T PO; -BACL10TA PO; +Colchicine PO; +DULO60CA60 PO; +ERGO500013 PO; +FURO20TA3 PO; +FURO40TA4 PO; +LEVO125T7 PO; +LEVO75TA5 PO; +LISI-313 PO; -LOSA1TAB3 PO; -LYR75 PO; -TRAM50TA2 PO
[2019-04-02] MEDS ORDERED: CEFTRIAXONE 1 GM/50 ML (PMX) 50 ML IVPB STA ×2 (15:21→16:11)
[2019-04-02] MEDS ORDERED: AZITHROMYCIN 500MG/NS (PMX) 250 ML IV STA ×2 (15:21→16:11)
[2019-04-02] MEDS ORDERED: ONDANSETRON 4 MG INJ IV PRN (17:00)
[2019-04-02] MEDS ORDERED: ACETAMINOPHEN 325 MG TAB PO PRN ×2 (17:00→22:00)
[2019-04-02] MEDS: FUROSEMIDE 40 MG TAB PO SCH (19:47)
[2019-04-02 21:14] VITALS: Ht 162.6 cm; Wt 47.4 kg
[2019-04-02 21:15] VITALS: BP 171/70; PULSE 96; RESP 18
[2019-04-02 22:00] VITALS: BP 134/72; PULSE 86
[2019-04-02] MEDS ORDERED: LISINOPRIL 5 MG TAB PO ONE (22:00)
[2019-04-03 02:15] VITALS: BP 140/62; PULSE 91; RESP 18
[2019-04-03] MEDS ORDERED: LEVOTHYROXINE 125 MCG TAB ONE (05:05)
[2019-04-03] MEDS ORDERED: PANTOPRAZOLE (EC) 40 MG TAB PO ONE (05:05)
[2019-04-03] MEDS ORDERED: LEVOTHYROXINE 125 MCG TAB PO SCH (07:00)
[2019-04-03] MEDS ORDERED: PANTOPRAZOLE (EC) 40 MG TAB PO SCH (07:00)
[2019-04-03 08:24] VITALS: BP 139/57; PULSE 95; RESP 18
[2019-04-03] MEDS: FUROSEMIDE 40 MG TAB PO SCH (08:24)
[2019-04-03] MEDS ORDERED: AZITHROMYCIN 500 MG TAB PO SCH (09:00)
[2019-04-03] MEDS ORDERED: METOPROLOL 25 MG TAB PO SCH (09:00)
[2019-04-03] MEDS ORDERED: LISINOPRIL 5 MG TAB PO SCH (09:00)
[2019-04-03] MEDS ORDERED: AL HYDROX/MG HYDROX/SIMETH 30 ML CUP PO PRN (09:30)
[2019-04-03 14:49] VITALS: BP 115/57; PULSE 70; RESP 16
== END 2019-04-03 16:09 | disposition home or self-care (01) | DRG 188 ==
LOC: E/R 12:57 → 5EC 16:45 → CANRESERV 18:17
PROVIDERS: ADMIT Internal Medicine; ATTEND Internal Medicine
PROC: 0W993ZZ Drainage of Right Pleural Cavity, Percutaneous Approach (ICD-10-PCS; principal; 2019-04-03)
DX: J90 Pleural effusion, not elsewhere classified (principal); I10 Essential (primary) hypertension; E03.9 Hypothyroidism, unspecified; R91.8 Other nonspecific abnormal finding of lung field
CPT/HCPCS: 36415; 71045; 74176; 76942; 80053; 81001; 83690; 84484; 85025; 85610; 85730; 88104; 88305; 93005; 96374; J0456; J0696